=== PATIENT | female | born 1970 | race Caucasian/White ===

== ENCOUNTER 2019-11-06 12:16 | Emergency (ER) | payer OTHER, SELFPAY ==
--- NOTE | ~2019-11-06 | XR_ITS ---
EXAMINATION: XR chest 1V portable DATE: 11/06/2019 14:05 INDICATION: Cough. TECHNIQUE: A single frontal view of the chest was obtained. COMPARISON: None. FINDINGS: The chest demonstrates clear lungs without pneumonia, pleural effusion, or pneumothorax. Th e heart size is normal. There are changes of anterior fusion procedure in cervical spine. IMPRESSION: 1. No acute cardiopulmonary disease. Reviewed, dictated and finalized at location A.
[2019-11-06 12:19] VITALS: BP 151/93; PULSE 100; RESP 20; TEMP 36; O2SAT 98
--- NOTE | 2019-11-06 12:38 | ED.GENADULT ---
HPI - General Adult General Chief complaint: Upper Respiratory Infection Stated complaint: Asthma, + covid exposure Time Seen by Provider: 11/06/19 12:37 Review of Systems Review of Systems: Narrative: CONSTITUTIONAL: Denies fever, chills, or sweats. EYES: Denies visual changes, redness, or discharge. ENT: Denies rhinorrhea, congestion, sore throat, or otalgia. CARDIOVASCULAR: Denies chest pain, palpitations, or edema. RESPIRATORY: Denies cough or dyspnea. GASTROINTESTINAL: Denies abdominal pain, nausea, vomiting, or diarrhea. GENITOURINARY: Denies dysuria or hematuria. SKIN: Denies rash or itching. MUSCULOSKELETAL: Denies back pain, joint pain, or myalgia. NEUROLOGIC: Denies headache, numbness, or weakness. PSYCHIATRIC: Denies anxiety or depression. PMFSH Past Medical History Medical History (Updated 11/06/19 @ 14:31 by Veronica Newby MD) Anxiety Asthma Exam Narrative: Exam Narrative: General appearance: Well-developed, well-nourished Skin: Normal color Head: Normocephalic, nontraumatic Eyes: Clear conjunctiva ENT: Oropharynx normal, ears normal, nose normal Neck: Supple, nontender Chest and respiratory: Airway patent, no respiratory distress, no accessory muscle use Heart: Regular rate/rhythm Abdomen: Soft, nontender, no organomegaly, quiet bowel sounds Vascular: Normal peripheral pulses, normal capillary refill. Musculoskeletal: Normal range of motion, nontender back Neurologic: Alert and oriented ?3, CERAMIC CHEMIST is normal as tested, no gross motor deficit Course Course Emergency Course: Stable Vital Signs Vital signs: Vital Signs Temperature 36.0 C L 11/06/19 12:19 Pulse Rate 100 11/06/19 12:19 Respiratory Rate 11/06/19 12:19 Blood Pressure 151/93 H 11/06/19 12:19 Pulse Oximetry 98 11/06/19 12:19 Temperature 36.0 C L 11/06/19 12:19 Pulse Rate 100 11/06/19 12:19 Respiratory Rate 11/06/19 12:19 Blood Pressure 151/93 H 11/06/19 12:19 Pulse Oximetry 98 11/06/19 12:19 Medical Decision Making MDM Narrative Medical decision making narrative: Patient had exposure to somebody with COVID-19, presents with the above symptoms, history of asthma, the plan to get chest x-ray and ABG on room air, currently patient on prednisone,Z-Danie, Advair and albuterol inhaler. Chest x-ray looks okay, oxygen saturation on room air 94.5%. The plan to go home, remain isolated, with her COVID-19 test results. and to continue home medication Vital Signs Vital Signs: Vital Signs Temperature 36.0 C L 11/06/19 12:19 Pulse Rate 100 11/06/19 12:19 Respiratory Rate 20 11/06/19 12:19 Blood Pressure 151/93 H 11/06/19 12:19 Pulse Oximetry 98 11/06/19 12:19 Temperature 36.0 C L 11/06/19 12:19 Pulse Rate 100 11/06/19 12:19 Respiratory Rate 20 11/06/19 12:19 Blood Pressure 151/93 H 11/06/19 12:19 Pulse Oximetry 98 11/06/19 12:19 ABG Data ABG results: 11/06/19 13:02 Puncture Site Right brachial ABG pH 7.408 ABG pCO2 39.1 ABG pO2 71.9 L ABG PO2/FiO2 Ratio 3.42 ABG HCO3 24.1 ABG O2 Saturation 94.6 L ABG O2 Content 19.1 ABG Base Excess -0.4 A-a Gradient 31.0 Oxyhemoglobin 93.6 Total Hemoglobin 14.5 O2 Delivery Device Room air O2 Liters/Min Not Reportable FiO2 21 Critical Care Time Critical Care Time Critical Care Time: No Discharge Plan Discharge Clinical Impression: Upper respiratory infection Qualifiers: URI type: unspecified URI Qualified Code(s): J06.9 - Acute upper respiratory infection, unspecified Patient Disposition: Home, Self-Care Condition: Stable Instructions: Upper Respiratory Infection (ED) Additional Instructions: Return if sympto
[2019-11-06 13:10] LABS: Base Excess ABG -0.4 mEq/l (+/-2.0); Device ROOM AIR; Fractional Inspired Oxygen 21 %; HCO3 ABG 24.1 mEq/l (22.0-26.0); Oxygen Content ABG 19.1 %vol (16.0-22.0); Oxygen Saturation ABG 94.6 % (95.0-100.0); Oxyhemoglobin 93.6 % THb (90.0-100.0); PCO2 ABG 39.1 mmHg (35.0-45.0); PO2 ABG 71.9 mmHg (80.0-100.0); PO2 FiO2 Ratio Arterial Blood 3.42 %; Site Drawn RIGHT BRACHIAL; Total Hemoglobin 14.5 g/dL (12.0-18.0); pH ABG 7.408 (7.350-7.450)
[2019-11-06 22:23] LABS: SARS-CoV-2 RNA PCR Positive
== END 2019-11-06 14:41 | disposition home or self-care (01) ==
PROVIDERS: Emergency Provider Emergency Medicine; PCP Internal Medicine
DX: U07.1 COVID-19 (principal); J06.9 Acute upper respiratory infection, unspecified; J45.909 Unspecified asthma, uncomplicated
CPT/HCPCS: 36600; 71045; 82805; 87635; 99283; C9803; U0003

== ENCOUNTER 2019-11-12 17:39 | Inpatient (IN) | payer OTHER, SELFPAY ==
[2019-11-12] VITALS (10 sets, daily range): BP systolic 97–155; BP diastolic 72–95; PULSE 83–94; RESP 16–22; TEMP 36.8–38.1; O2SAT 92–97; BMI 46.5
--- NOTE | ~2019-11-12 | XR_ITS ---
EXAMINATION: XR chest 1V portable DATE: 11/12/2019 18:15 INDICATION: COVID 19. Shortness of breath. TECHNIQUE: frontal view of the chest was obtained. COMPARISON: Chest radiograph dated 11/06/2019 FINDINGS: Increasing bilateral scattered patchy peripheral predominant opacities consistent with pneumonia. No pleural effusion or pneumothorax. The cardiomediastinal silhouette is normal. Anterior plate and scre w fixation for lower cervical anterior spinal fusion. IMPRESSION: 1. Increasing scattered bilateral patchy lung disease consistent with pneumonia. Reviewed, dictated and finalized at location A. IMPRESSION: 1. Increasing scattered bilateral patchy lung disease consistent with pneumonia .
--- NOTE | 2019-11-12 17:41 | ECG_ITS ---
Measurements Intervals Mcdonald Rate: 91 P: 10 MT: 178 QRS: 10 QRSD: 94 T: 11 QT: 340 QTc: 420 Interpretive Statements SINUS RHYTHM LOW QRS VOLTAGE IN PRECORDIAL LEADS BORDERLINE R WAVE PROGRESSION, ANTERIOR LEADS BASELINE ARTIFACT- I, II, V3 BORDERLINE ECG Electronically Signed On 11-12-2019 19:38:18 CDT by Sancho Leonardo D.O.
[2019-11-12 18:10] LABS: Hematocrit 42.4 % (37.0-47.0); Hemoglobin 14.2 g/dL (12.0-15.0); Mean Corpuscular HGB Conc 33.5 g/dl (32-36); Mean Corpuscular Volume 86.7 fl (80-100); Mean Platelet Volume 9.9 fl (7.4-10.4); Platelet Count Result 269 k/mm3 (150-375); Red Blood Count 4.89 M/mm3 (4.2-5.4); Red Cell Distribution Width 13.2 % (11.5-14.5); White Blood Count 6.9 K/mm3 (4.5-10.0)
[2019-11-12 18:22] LABS: INR 0.9; Partial Thromboplastin Time 26.6 SECONDS (22.3-36.8)
[2019-11-12 18:32] LABS: Alanine Aminotransferase 60 U/L (4-35); Albumin Level 4.2 g/dL (3.5-5.1); Alkaline Phosphatase 64 U/L (38-126); Anion Gap 8 mmol/L (8-16); Aspartate Amino Transferase 60 U/L (14-36); Bilirubin,Total 0.8 mg/dL (0.2-1.3); Blood Urea Nitrogen 17 mg/dL (7-17); Carbon Dioxide 29 mmol/L (22-30); Chloride 99 mmol/L (98-107); Estimated CRCL calculation 126 ml/min; Estimated Glomerular Filt Rate > 60; Glucose 95 mg/dL (65-105); Potassium 3.8 mmol/L (3.4-5.0); Sodium 136 mmol/L (137-145)
[2019-11-12 18:36] LABS: Band Neutrophils Percent 4 % (0-6); Lymphocytes Absolute Manual 2.55 K/mm3 (1.1-4.5); Monocytes Absolute Manual 0.69 K/mm3 (0.1-0.90); Monocytes Percent Manual 10 % (3-9); Neutrophils Absolute Manual 3.65 K/mm3 (1.7-7.2); Neutrophils Percent Manual 49 % (46-73); Total Cells Counted 100
[2019-11-12 18:37] LABS: Platelet Estimate Adequate (Adequate)
[2019-11-12 18:38] LABS: Alveolar/Arterial O2 Gradient 41.5 mmHg; Base Excess ABG 2.6 mEq/l (+/-2.0); Carboxyhemoglobin 0.7 % THb (0-2.0); Fractional Inspired Oxygen 21 %; Methemoglobin ABG 0.2 %THb (0-1.5); Oxygen Content ABG 17.9 %vol (16.0-22.0); Oxygen Saturation ABG 91.7 % (95.0-100.0); Oxyhemoglobin 90.9 % THb (90.0-100.0); PCO2 ABG 40.6 mmHg (35.0-45.0); PO2 ABG 59.6 mmHg (80.0-100.0); PO2 FiO2 Ratio Arterial Blood 2.84 %; Reduced Hemoglobin 8.2 %THb (0-5.0); Site Drawn RIGHT BRACHIAL
[2019-11-12 18:39] LABS: Device ROOM AIR
[2019-11-12 18:49] LABS: CRP 13.5 mg/dL (<1.0)
--- NOTE | 2019-11-12 19:47 | PC.NURSE ---
Patient up to commode to provide urine at this time.
[2019-11-12 20:06] LABS: Add Urine Microscopic? YES; Appearance Urine Clear (Clear); Bacteria Urine Trace /hpf; Bilirubin Urine Negative (Negative); Blood Urine Negative (Negative); Color Urine Yellow (Yellow); Glucose Urine UA Negative (Negative); Ketones Urine Negative (Negative); Leukocyte Esterase Ur 3+ LEU/UL (Negative); Mucus Urine Rare /lpf; Nitrate Urine Negative (Negative); Protein Urine Negative (Negative); Specific Grav Ur 1.014 (1.001-1.035); Squamous Epithelial Cell Urine Few /hpf (Few); Urobilinogen Urine Negative mg/dL (<2.0); WBC Urine 0-3 /hpf
--- NOTE | 2019-11-12 20:11 | ED.SOB ---
HPI - SOB/Dyspnea General Chief Complaint: Shortness of Breath/Dyspnea Stated Complaint: covid+,SOB Time Seen by Provider: 11/12/19 19:06 History of Present Illness HPI Narrative: Patient is a 49-year-old female who presents ER with shortness of breath. Patient was diagnosed with COVID-19 6 days ago. Prior to that she had been on prednisone and a Z-Danie for about 5 days. Due to increasing shortness of breath and home pulse oximetry readings in the 80s patient came to the ER today. She reports she can walk 115 feet without becoming very short of breath. Patient's reports she intermittently collapses due to her fatigue and shortness of breath. No chest pain or chest pressure. She does have frequent coughing. Patient has history of asthma. She was hypoxic to 88% upon walking into her room. Related Data Home Medications Medication Instructions Recorded Confirmed albuterol sulfate 2 puff INHALATION Q4-6H PRN 11/12/19 11/12/19 cetirizine [Zyrtec] 10 mg PO DAILY 11/12/19 11/12/19 fluticasone propion-salmeterol 1 inh INHALATION BID 11/12/19 11/12/19 [Advair Diskus] lisinopril-hydrochlorothiazide 1 tablet PO DAILY 11/12/19 11/12/19 methocarbamol 500 - 1,000 mg PO DAILY PRN 11/12/19 11/12/19 omeprazole 20 mg PO DAILY 11/12/19 11/12/19 rosuvastatin 10 mg PO DAILY 11/12/19 11/12/19 Allergies Allergy/AdvReac Type Severity Reaction Status Date / Time No Known Allergies Allergy Verified 11/12/19 17:40 Review of Systems Review of Systems: All systems reviewed & are unremarkable except as noted in HPI and below Constitutional: Constitutional: Denies chills, Denies fever(s) and Reports weakness ENT: Reports nasal congestion and Reports sore throat Cardiovascular: Cardiovascular: Denies chest pain and Denies radiating jaw, neck or arm pain Respiratory: Respiratory: Reports cough, Reports dyspnea and Denies wheezing Gastrointestinal: Gastrointestinal: Denies abdominal pain, Denies nausea and Denies vomiting [facility] Past Medical History Medical History (Updated 11/13/19 @ 06:08 by Jani Zavala MD) Anxiety Asthma She has not had pulmonary function testing and was only recently diagnosed with asthma due to episodes of shortness of breath Essential hypertension GERD (gastroesophageal reflux disease) Hyperlipidemia Morbid obesity Surgical History Surgical History (Updated 11/12/19 @ 23:20 by Beti Howard DO) H/O hysterectomy for benign disease Hx of cholecystectomy Hx of vaginal surgery to remove benign masses Family History Family History (Updated 11/12/19 @ 23:20 by Beti Howard DO) Other Unknown family medical history Social History Social History (Updated 11/12/19 @ 23:23 by Beti Howard DO) Social History: The patient lives in [place] with her of 32 years. They have 2 adult children that are in their mid 20s in who are healthy. She is a lifelong nonsmoker. Primary care physician: Dr. Silas Porter Code status: Full code Smoking status: Never smoker Alcohol intake: current Alcohol use details: She drinks 1 or 2 alcoholic beverages once a month. 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 Gender identity (if verbalized by the patient): Female Spiritual care concerns: No Exam Narrative: Exam Narrative: GENERAL: Fatigue-appearing, well-nourished, and in no acute distress. HEAD: Normocephalic, atraumatic. ENT: Mucous membranes moist. CHEST: Clear to auscultation. No respiratory distress. HEART: Regular rate and rhythm. Normal peripheral pulses. ABDOMEN: Soft, nontender, nondistended EXTREMITIES: Normal range of motion. No edema. SKIN: Warm, dry, no rash. NEURO: Alert and oriented x3. Course Vital Signs Vital signs: Vital Signs Temperature 98.2 F 11/12/19 18:07 Pulse Rate 94 11/12/19 18:07 Respiratory Rate 17
--- NOTE | 2019-11-12 23:08 | PM.IMHP ---
H&P: HPI History of Present Illness Date/Time: 11/12/19 21:50 Chief complaint: increasing shortness of breath, COVID-19+ Narrative: Sonya Sanchez is a 49 year old female with a past medical history of hypertension, GERD and morbid obesity who presented to the ER with increasing shortness of breath. 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 One of her colleagues tested positive for COVID-19. A few days later she began to feel ill and came in for testing on 11/06/2019 and was found to Positive for COVID-19. She was discharged home from the ER had that time With prescriptions for azithromycin and prednisone. She completed her steroid and antibiotic therapy. Despite taking her medications as directed she has become more short of breath both at rest and with exertion. She can only walk about 10-15 feet without significant distress. Her oxygen saturations have dropped as low as 83% on room air with act divot he and is low as 86% on room air at rest. Her had noticed that over the last 2 days she had become more lethargic and over the last 24 hours had had difficulty concentrating and seemed confused at times. The patient herself reports that she has been having generalized body aches, loss of sense of smell, and has significant postnasal drip. She has some nausea associated with her postnasal drip but denies any vomiting. She reports that anything she tries to eat or drink tastes salty. She denies any chest pain. She has been having some heart racing with activity. Her reports that her temperature has been as high as 102.3 at home. She has a cough that is nonproductive. When the patient stood up to walk into the ER exam room her oxygen saturations dropped to 88%. She had hypoxemia noted on her ABG. she has been using her home inhalers without relief in symptoms. The patient does have chronic daytime somnolence and episodes of witnessed apnea and snoring at baseline. She has never had a sleep study. She reports that she feels exhausted all the time. She is obese but her weight is been stable. She was recently diagnosed with asthma. She reports this is due to intermittent cough and shortness of breath. The symptoms seem to be associated with times when she has increased acid in her stomach. Both her breathing symptoms and stomach symptoms arm proved when she takes [id number] PPI therapy. Review of Systems Review of Systems: Narrative: 12 systems were reviewed with pertinent positives and negatives per HPI. Except as documented in the HPI, all other systems were reviewed and are negative. [facility] Past Medical History Medical History (Updated 11/13/19 @ 06:08 by Jani Zavala MD) Anxiety Asthma She has not had pulmonary function testing and was only recently diagnosed with asthma due to episodes of shortness of breath Essential hypertension GERD (gastroesophageal reflux disease) Hyperlipidemia Morbid obesity Surgical History Surgical History (Updated 11/12/19 @ 23:20 by Beti Howard DO) H/O hysterectomy for benign disease Hx of cholecystectomy Hx of vaginal surgery to remove benign masses Family History Family History (Updated 11/12/19 @ 23:20 by Beti Howard DO) Other Unknown family medical history Social History Social History (Updated 11/12/19 @ 23:23 by Beti Howard DO) Social History: The patient lives in [place] with her of 32 years. They have 2 adult children that are in their mid 20s in who are healthy. She is a lifelong nonsmoker. Primary care physician: Dr. Silas Potrer Code status: Full code Smoking status: Never smoker Alcohol intake: current Alcohol use details: She drinks 1 or 2 alcoholic beverages once a month. 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 Gender identity (if verbalized by the patient
--- NOTE | 2019-11-12 23:32 | ADMGEN ---
This patient, Sonya Sanchez, was admitted to [facility] Surg Room 326-01. Patient/family oriented to hospital policies and general routines including ID bracelet, bed and alarms, visiting hours, pain management, procedures, bathroom and other care routines, personal items, smoking policy, room service/diet, and visiting hours. Valuables list has been completed. Information on how to activate the Rapid Response Team has been discussed. Patient/Family are encouraged to report perceived risks to care and to ask questions if they do not understand what they are told or what they should do.
[2019-11-13 00:33] VITALS: TEMP 38.1
[2019-11-13] MEDS: ACETAMINOPHEN 325 MG TABLET 650 MG PO ×2 (00:33→18:03)
[2019-11-13 04:00] VITALS: BP 121/72; PULSE 68; RESP 20; TEMP 36.8; O2SAT 92
[2019-11-13 06:28] LABS: Hematocrit 41.9 % (37.0-47.0); Hemoglobin 13.7 g/dL (12.0-15.0); Mean Corpuscular HGB Conc 32.7 g/dl (32-36); Mean Corpuscular Hemoglobin 28.7 pg (26-34); Mean Corpuscular Volume 87.7 fl (80-100); Mean Platelet Volume 9.8 fl (7.4-10.4); Platelet Count Result 272 k/mm3 (150-375); Red Blood Count 4.78 M/mm3 (4.2-5.4); Red Cell Distribution Width 12.9 % (11.5-14.5); White Blood Count 4.2 K/mm3 (4.5-10.0)
[2019-11-13 06:49] LABS: D Dimer 0.92 ug/mL (<0.48)
[2019-11-13 07:12] LABS: Alanine Aminotransferase 52 U/L (4-35); Albumin Level 4.2 g/dL (3.5-5.1); Alkaline Phosphatase 61 U/L (38-126); Anion Gap 8 mmol/L (8-16); Aspartate Amino Transferase 40 U/L (14-36); Bilirubin,Total 0.8 mg/dL (0.2-1.3); Blood Urea Nitrogen 19 mg/dL (7-17); CRP 7.6 mg/dL (<1.0); Calcium 9.2 mg/dL (8.4-10.2); Carbon Dioxide 31 mmol/L (22-30); Chloride 98 mmol/L (98-107); Estimated CRCL calculation 126 ml/min; Estimated Glomerular Filt Rate > 60; Glucose 142 mg/dL (65-105); Lactate Dehydrogenase 582 U/L (313-618); Potassium 4.9 mmol/L (3.4-5.0); Sodium 137 mmol/L (137-145)
[2019-11-13 08:00] VITALS: BP 119/73; PULSE 74; PULSE 85; RESP 20; TEMP 36.4; O2SAT 93; O2SAT 94
[2019-11-13] MEDS: ALBUTEROL SULFATE (*SP) AEROSOL 1 PUFF 6 PUFF INHALATION ×4 (08:01→20:59)
[2019-11-13] MEDS: FLUTICASONE/SALMETEROL 115-21 MCG INHALER 1 PUFF 2 PUFF INHALATION ×2 (08:01→20:59)
[2019-11-13] MEDS: ENOXAPARIN 40 MG/0.4 ML SYRINGE SUB-Q ×2 (10:41→20:28)
[2019-11-13] MEDS: LORATADINE 10 MG TABLET PO (10:42)
[2019-11-13] MEDS: PANTOPRAZOLE 40 MG TABLET PO (10:42)
[2019-11-13] MEDS: lisinopriL 20 MG TABLET PO (10:42)
--- NOTE | 2019-11-13 11:38 | PM.IMPN ---
Progress Note: A&P Assessment and Plan (1) Sepsis with acute hypoxic respiratory failure: Code(s): A41.9 - Sepsis, unspecified organism; R65.20 - Severe sepsis without septic shock; J96.01 - Acute respiratory failure with hypoxia Status: Acute Assessment and Plan: Evident based on fever, tachycardia, and tachypnea. Lactic acid is 1.0. Source of infection is likely COVID-19 pneumonia. Blood cultures are pending and will await final results Monitor labs and vitals closely Continue supportive care and dexamethasone (2) Pneumonia due to COVID-19 virus: Code(s): U07.1 - COVID-19; J12.89 - Other viral pneumonia Status: Acute Assessment and Plan: Onset of symptoms 8 days ago. Positive test on 11/06/2019. CXR shows bilateral patchy lung disease consistent with pneumonia. T-max 100.5?. Continue dexamethasone given oxygen requirements. Supplemental O2 as needed with goal saturation 90% or above Scheduled albuterol inhalers and Spiriva each a.m. Acetaminophen as needed for fever. Begin Mucinex. Trend acute phase reactants Continue isolation precautions (3) Asthma: Code(s): J45.909 - Unspecified asthma, uncomplicated Status: Acute Assessment and Plan: She has recently been started on Advair and reports improvement of her respiratory symptoms that have been ongoing for some time. Continue Advair (4) GERD (gastroesophageal reflux disease): Code(s): K21.9 - Gastro-esophageal reflux disease without esophagitis Status: Acute Assessment and Plan: Continue PPI therapy. (5) Daytime somnolence: Code(s): R40.0 - Somnolence Status: Acute Assessment and Plan: Patient complains of excessive daytime sleepiness, snoring, and had a witnessed apneic episode reported by her . She likely has sleep apnea. She would benefit from outpatient sleep study Subjective Date/time seen: 11/13/19 11:38 Interval history: date of service: 11/13/2019 Patient is a 49-year-old female with a history asthma and hypertension who is COVID positive. Today she feels short of breath, but improved from yesterday. She had CHÁVEZ when walking to the bathroom. She is coughing frequently. She feels that she has mucus in her chest but she is not able to expectorate. She has orthopnea. She complains of right anterior chest discomfort which is relieved by raising her right arm and she attributes this to coughing. She has poor sense of smell and feels that her taste is diminished. She denies any congestion or upper respiratory symptoms. She denies nausea, vomiting, fever, chills, abdominal pain, cramping, or diarrhea. She denies headache, dizziness, or lightheadedness. Her last bowel movement was 2 days ago. She is urinating regularly and denies dysuria or hematuria. Her appetite has been good. She slept well last night. She has no additional concerns. Review of Systems Review of Systems: Narrative: A 12 point review of systems was reviewed with pertinent positives and negatives as per HPI. Exam Narrative: Exam Narrative: Ms. Sanchez is an obese 49-year-old female who is lying semi recumbent in bed. She appears comfortable and is in no acute respiratory distress. HR 68, BP 121/72, R 20, T 98.2?, 93% on 2 L Neuro: awake, alert and oriented x4, speech clear, no focal neuro deficits noted HEENMT: normocephalic, atraumatic, EOMI, sclerae anicteric, moist oral mucosa, tongue midline Neck: supple, no lymphadenopathy Respiratory: diminished breath sounds without crackles or wheezes noted, nonlabored breathing Cardio: regular rate, regular rhythm with S1-S2 Abdomen: obese, nondistended, normoactive bowel sounds, soft, nontender to palpation Extremities: scant pedal edema, no erythema, cyanosis, clubbing, or tenderness to palpation, DP pulses 2+ bilaterally Skin: no rashes or lesions, warm and dry Psych: pleasant
[2019-11-13 12:00] VITALS: BP 125/74; PULSE 79; RESP 20; TEMP 36.6; O2SAT 91
[2019-11-13 16:00] VITALS: BP 115/60; PULSE 79; RESP 18; TEMP 36.4; O2SAT 91
[2019-11-13 20:00] VITALS: BP 137/70; PULSE 83; RESP 20; TEMP 36.6; O2SAT 95
[2019-11-13] MEDS: guaiFENesin 12 HR 600 MG TABCR PO (20:27)
[2019-11-14] VITALS: BP 105/66; PULSE 82; RESP 18; TEMP 36.6; O2SAT 93
[2019-11-14 04:00] VITALS: BP 116/67; PULSE 71; RESP 18; TEMP 36.6; O2SAT 93
[2019-11-14 06:34] LABS: Basophils Percent Auto 0.2 % (0.2-1.2); Hematocrit 37.5 % (37.0-47.0); Hemoglobin 12.6 g/dL (12.0-15.0); Immature Granulocyte Percent A 0.9 % (0-0.5); Lymphocytes Absolute Auto 1.63 K/mm3 (0.9-3.2); Lymphocytes Percent Auto 15.2 % (18.3-44.2); Mean Corpuscular HGB Conc 33.6 g/dl (32-36); Mean Corpuscular Hemoglobin 28.8 pg (26-34); Mean Corpuscular Volume 85.6 fl (80-100); Mean Platelet Volume 9.7 fl (7.4-10.4); Monocytes Absolute Auto 0.6 K/mm3 (0.1-0.6); Monocytes Percent Auto 5.9 % (2.6-8.5); Neutrophils Absolute Auto 8.4 K/mm3 (1.3-6.7); Neutrophils Percent Auto 77.8 % (45.5-73.1); Platelet Count Result 324 k/mm3 (150-375); Red Blood Count 4.38 M/mm3 (4.2-5.4); Red Cell Distribution Width 12.7 % (11.5-14.5); White Blood Count 10.7 K/mm3 (4.5-10.0)
[2019-11-14 06:47] LABS: Alanine Aminotransferase 35 U/L (4-35); Albumin Level 3.9 g/dL (3.5-5.1); Alkaline Phosphatase 50 U/L (38-126); Anion Gap 9 mmol/L (8-16); Aspartate Amino Transferase 24 U/L (14-36); Bilirubin,Total 0.7 mg/dL (0.2-1.3); Blood Urea Nitrogen 24 mg/dL (7-17); CRP 3.4 mg/dL (<1.0); Calcium 9.1 mg/dL (8.4-10.2); Carbon Dioxide 29 mmol/L (22-30); Chloride 98 mmol/L (98-107); Estimated CRCL calculation 144 ml/min; Estimated Glomerular Filt Rate > 60; Glucose 124 mg/dL (65-105); Lactate Dehydrogenase 444 U/L (313-618); Potassium 4.6 mmol/L (3.4-5.0); Sodium 136 mmol/L (137-145)
[2019-11-14 07:11] LABS: Hemoglobin A1C 5.7 % (<5.7)
[2019-11-14 08:00] VITALS: BP 114/72; PULSE 76; RESP 18; TEMP 37.2; O2SAT 91
[2019-11-14] MEDS: FLUTICASONE/SALMETEROL 115-21 MCG INHALER 1 PUFF 2 PUFF INHALATION ×2 (08:40→21:13)
[2019-11-14] MEDS: ALBUTEROL SULFATE (*SP) AEROSOL 1 PUFF 6 PUFF INHALATION ×4 (08:40→21:13)
[2019-11-14] MEDS: guaiFENesin 12 HR 600 MG TABCR PO ×2 (09:38→21:34)
[2019-11-14] MEDS: ENOXAPARIN 40 MG/0.4 ML SYRINGE SUB-Q ×2 (09:38→21:35)
[2019-11-14] MEDS: lisinopriL 20 MG TABLET PO (09:39)
[2019-11-14] MEDS: LORATADINE 10 MG TABLET PO (09:39)
[2019-11-14] MEDS: PANTOPRAZOLE 40 MG TABLET PO (09:39)
[2019-11-14 12:00] VITALS: BP 111/72; PULSE 81; RESP 18; TEMP 36.6; O2SAT 92
[2019-11-14] MEDS: ACETAMINOPHEN 325 MG TABLET 650 MG PO ×2 (12:00→22:12)
[2019-11-14 16:00] VITALS: BP 111/88; PULSE 90; RESP 20; TEMP 36.8; O2SAT 95
--- NOTE | 2019-11-14 16:40 | PM.IMPN ---
Progress Note: A&P Assessment and Plan (1) Sepsis with acute hypoxic respiratory failure: Code(s): A41.9 - Sepsis, unspecified organism; R65.20 - Severe sepsis without septic shock; J96.01 - Acute respiratory failure with hypoxia Status: Acute Assessment and Plan: Evident based on fever, tachycardia, and tachypnea. Lactic acid is 1.0. Source of infection is likely COVID-19 pneumonia. Resolved. She has remained afebrile and vital stable. Preliminary blood cultures reveal NGTD, await final results Monitor labs and vitals closely Continue supportive care and dexamethasone (2) Pneumonia due to COVID-19 virus: Code(s): U07.1 - COVID-19; J12.89 - Other viral pneumonia Status: Acute Assessment and Plan: Onset of symptoms 8 days ago. Positive test on 11/06/2019. CXR shows bilateral patchy lung disease consistent with pneumonia. T-max 100.5? but afebrile >24 hours. she was weaned to room air and is tolerating Continue dexamethasone given oxygen requirements. Supplemental O2 as needed with goal saturation 90% or above Scheduled albuterol inhalers and Spiriva each a.m. Acetaminophen as needed for fever, mucinex and tessalon for cough Trend acute phase reactants Continue isolation precautions (3) Asthma: Code(s): J45.909 - Unspecified asthma, uncomplicated Status: Acute Assessment and Plan: She has recently been started on Advair and reports improvement of her respiratory symptoms that have been ongoing for some time. Continue Advair Recommend outpatient pulmonary function testing at discretion of PCP (4) GERD (gastroesophageal reflux disease): Code(s): K21.9 - Gastro-esophageal reflux disease without esophagitis Status: Acute Assessment and Plan: Continue PPI therapy. (5) Daytime somnolence: Code(s): R40.0 - Somnolence Status: Acute Assessment and Plan: Patient complains of excessive daytime sleepiness, snoring, and had a witnessed apneic episode reported by her . She likely has sleep apnea. She would benefit from outpatient sleep study Subjective Date/time seen: 11/14/19 16:40 Interval history: Date of service: 11/13/2019 Patient is a 49-year-old female with a history asthma and hypertension who is COVID positive. her shortness of breath is improving but she continues to have persistent cough. She feels that her cough is a little looser and has been more productive. However she does continue to have episodes of coughing so significant that it makes her dizzy. She continues to have dyspnea on exertion with ambulation very short distances. She continues to endorse poor sense of taste or smell. she has chest wall discomfort secondary to coughing. She denies nausea, vomiting, fever, chills, abdominal pain, diarrhea, headache, dizziness, or lightheadedness. She is urinating regularly and denies dysuria or hematuria. Her appetite has been good. She has no additional concerns. Review of Systems Review of Systems: Narrative: 12 point review of systems was reviewed with pertinent positives and negatives as per HPI. Exam Narrative: Exam Narrative: Ms. Sanchez is an obese 49-year-old female who is sitting up in a chair at the bedside. She appears comfortable and is in no acute respiratory distress. HR 71, BP 116/67, RR 18, T 97.8? 93% on room air Neuro: awake, alert and oriented x4, speech clear, no focal neuro deficits noted HEENMT: normocephalic, atraumatic, EOMI, sclerae anicteric, moist oral mucosa, tongue midline Neck: supple, no lymphadenopathy Respiratory: clear to auscultation bilaterally, nonlabored breathing, dry cough heard on exam Cardio: regular rate, regular rhythm with S1-S2 Abdomen: obese, nondistended, normoactive bowel sounds, soft, nontender to palpation Extremities: no edema, erythema, cyanosis, clubbing, or tenderness to palpation, DP pulses 2+ b
[2019-11-14 20:00] VITALS: BP 110/67; PULSE 78; RESP 20; TEMP 36.6; O2SAT 95
[2019-11-14] MEDS: BENZONATATE 100 MG CAPSULE PO (22:12)
[2019-11-15] VITALS: BP 108/64; PULSE 82; RESP 18; TEMP 36.2; O2SAT 94
[2019-11-15 04:00] VITALS: BP 115/69; PULSE 70; RESP 20; TEMP 36.3; O2SAT 93
[2019-11-15 06:51] LABS: Hematocrit 36.7 % (37.0-47.0); Mean Corpuscular HGB Conc 32.7 g/dl (32-36); Mean Corpuscular Hemoglobin 28.8 pg (26-34); Mean Platelet Volume 9.7 fl (7.4-10.4); Platelet Count Result 310 k/mm3 (150-375); Red Blood Count 4.17 M/mm3 (4.2-5.4); Red Cell Distribution Width 13.2 % (11.5-14.5); White Blood Count 10.2 K/mm3 (4.5-10.0)
[2019-11-15 07:08] LABS: Alanine Aminotransferase 28 U/L (4-35); Albumin Level 3.7 g/dL (3.5-5.1); Alkaline Phosphatase 45 U/L (38-126); Anion Gap 7 mmol/L (8-16); Aspartate Amino Transferase 20 U/L (14-36); Bilirubin,Total 0.9 mg/dL (0.2-1.3); Blood Urea Nitrogen 25 mg/dL (7-17); Calcium 8.8 mg/dL (8.4-10.2); Carbon Dioxide 31 mmol/L (22-30); Chloride 99 mmol/L (98-107); Estimated CRCL calculation 126 ml/min; Estimated Glomerular Filt Rate > 60; Glucose 88 mg/dL (65-105); Potassium 4.4 mmol/L (3.4-5.0); Sodium 137 mmol/L (137-145)
[2019-11-15] MEDS: ENOXAPARIN 40 MG/0.4 ML SYRINGE SUB-Q (08:09)
[2019-11-15] MEDS: PANTOPRAZOLE 40 MG TABLET PO (08:10)
[2019-11-15] MEDS: lisinopriL 20 MG TABLET PO (08:10)
[2019-11-15] MEDS: LORATADINE 10 MG TABLET PO (08:10)
[2019-11-15] MEDS: guaiFENesin 12 HR 600 MG TABCR PO (08:10)
[2019-11-15] MEDS: BENZONATATE 100 MG CAPSULE PO (08:11)
[2019-11-15] MEDS: ALBUTEROL SULFATE (*SP) AEROSOL 1 PUFF 6 PUFF INHALATION (09:24)
[2019-11-15 09:25] VITALS: O2SAT 97
[2019-11-15] MEDS: FLUTICASONE/SALMETEROL 115-21 MCG INHALER 1 PUFF 2 PUFF INHALATION (09:25)
--- NOTE | 2019-11-15 09:59 | PM.DS ---
DS: Admitting Diagnosis Admitting Diagnosis Admitting Diagnosis: increasing shortness of breath, COVID-19+ DS: Discharge Diagnosis Discharge Diagnosis (1) Sepsis with acute hypoxic respiratory failure: Code(s): A41.9 - Sepsis, unspecified organism; R65.20 - Severe sepsis without septic shock; J96.01 - Acute respiratory failure with hypoxia Status: Acute Assessment and Plan: Evident based on fever, tachycardia, and tachypnea. Lactic acid was 1.0. Suspected source was viral pneumonia. Resolved. Final blood cultures show micrococcus in 1/2 bottles which I suspect is contaminant. Remained afebrile with stable vitals. (2) Pneumonia due to COVID-19 virus: Code(s): U07.1 - COVID-19; J12.89 - Other viral pneumonia Status: Acute Assessment and Plan: Onset of symptoms 8 days prior to presentation. Positive test on 11/06/2019. CXR showed bilateral patchy lung disease consistent with pneumonia. She was weaned to room air. Received dexamethasone which she will continue to complete 10 days. Supportive care provided with albuterol, acetaminophen, and mucinex. (3) Asthma: Code(s): J45.909 - Unspecified asthma, uncomplicated Status: Acute Assessment and Plan: She had recently been started on Advair by PCP and reports improvement of her respiratory symptoms that had been ongoing for some time. Continue Advair. Recommend outpatient pulmonary function testing at discretion of PCP. (4) GERD (gastroesophageal reflux disease): Code(s): K21.9 - Gastro-esophageal reflux disease without esophagitis Status: Acute Assessment and Plan: Continue PPI therapy. (5) Daytime somnolence: Code(s): R40.0 - Somnolence Status: Acute Assessment and Plan: Patient complains of excessive daytime sleepiness, snoring, and had a witnessed apneic episode reported by her . She likely has sleep apnea and would benefit from outpatient sleep study DS: Summary Hospital Course Reason for hospitalization: Shortness of breath Hospital Course: Date of admission: 11/12/2019 Date of discharge: 11/15/2019 Sonya Sanchez is a 49 year old female with a history of asthma, HTN, GERD, and HLD who presented to the ED on 11/12/19 with complaints of shortness of breath after being diagnosed with COVID on 8/15/20. She reported she had home pulse oximetry readings in the 80% range. At presentation, she was hypoxic to 88% upon walking to her room and was febrile at 100.5, CXR showed scattered bilateral patchy lung disease. She was admitted to the hospitalist service for further evaluation and management. Please see above for further details. She was weaned to room air and her cough improved. She began feeling much better and was comfortable with discharge home, where she lives with her . Given her overall improvement and lack of oxygen requirements, she was determined to no longer require inpatient care. We discussed worrisome signs and symptoms for which to return and she will follow up with her PCP in 1 week. She was discharged in hemodynamically stable condition on 11/15/2019. Status at Discharge Functional status at discharge: independent ambulation Overall status at discharge: patient is progressing back to baseline Time Spent with Patient Time attestation: Total time spent providing and/or coordinating discharge services:45 minutes Time spent: Greater than 30 minutes Exam Narrative: Exam Narrative: Ms. Sanchez is an obese 49-year-old female who is sitting up in a chair at the bedside. She appears comfortable and is in no acute respiratory distress. HR 70, BP 115/69, R 20, T 97.3?, 97% on room air Neuro: awake, alert and oriented x4, speech clear, no focal neuro deficits noted HEENMT: normocephalic, atraumatic, EOMI, sclerae anicteric, moist oral mucosa, tongue midline Neck: supple, no lymphadenopathy Respiratory: clear to auscultation bilaterally, nonlabored
== END 2019-11-15 09:58 | disposition home or self-care (01) | DRG 871 ==
LOC: ANHED 20:49 → ANH3MEDSUR 21:42
PROVIDERS: Emergency Medicine; Physician Assistant; Admitting Provider Internal Medicine; Emergency Provider Emergency Medicine; PCP Internal Medicine; Visit Provider Internal Medicine
DX: A41.89 Other specified sepsis (principal); U07.1 COVID-19; J12.89 Other viral pneumonia; J96.01 Acute respiratory failure with hypoxia; Z68.42 Body mass index [BMI] 45.0-49.9, adult; R65.20 Severe sepsis without septic shock; J45.909 Unspecified asthma, uncomplicated; K21.9 Gastro-esophageal reflux disease without esophagitis; R40.0 Somnolence; F41.9 Anxiety disorder, unspecified; I10 Essential (primary) hypertension; E78.5 Hyperlipidemia, unspecified; E66.01 Morbid (severe) obesity due to excess calories; Z90.710 Acquired absence of both cervix and uterus; Z90.49 Acquired absence of other specified parts of digestive tract
CPT/HCPCS: 36415; 36600; 71045; 80053; 81001; 82375; 82728; 82805; 83036; 83050; 83605; 83615; 85025; 85027; 85380; 85610; 85730; 86140; 87040; 87077; 93005; 94640; 96374; 99285; A9270; G0378; J1100; J1650

== ENCOUNTER 2021-03-14 09:55 | Outpatient (CLI) | payer OTHER, SELFPAY ==
--- NOTE | 2021-03-14 11:12 | PCRCNOTE ---
PT CAME IN FOR PFT TESTING AND 6 MINUTE WALK. PT COMPLETED 6 MINUTE WALK AND WAS UNABLE TO PERFORM PFT TESTING. PT VERY SOB AND DIZZY. PT TOOK HOME SYMBICORT AND ALBUTEROL AND HAD SOME RELIEF.LEFT MESSAGE AT DR. FARMER'S OFFICE.
--- NOTE | 2021-03-14 13:48 | WPDSIXMINUTE ---
Six Minute Walk Procedure Procedure Performed Pulmonary Stress Test (6 min walk) Six Minute Walk This is a 6 minute walk test. The test was performed and interpreted in accordance with the 2014 ERS/ATS task force guidelines. Findings: The patient's resting room air oxygen saturation measured by pulse oximetry was 97% and heart rate was 88 bpm. Patient ambulated for 396 meters and oxygen saturation remained 95 to 99%. Heart rate at the end of the study was 109 bpm. The patient did not qualify for supplemental oxygen at rest or with ambulation. There are no prior studies for comparison.
== END 2021-03-14 09:56 | disposition home or self-care (01) ==
PROVIDERS: PCP Internal Medicine; Visit Provider Nurse Practitioner Family
DX: R06.02 Shortness of breath (principal)
CPT/HCPCS: 94618

== ENCOUNTER → 2021-04-09 09:19 | Outpatient (CLI) | payer OTHER, SELFPAY ==
--- NOTE | ~2021-04-09 | XR_ITS ---
EXAMINATION: XR chest 2V EXAM DATE: 04/09/2021 10:05 INDICATION: J45.41 - Moderate persistent asthma with (acute) exacerba... TECHNIQUE: Frontal and lateral projections of the chest obtained and reviewed. Comparison is made to prior examination from 04/09/2021. FINDINGS: Cervical fusion hardware. The lungs are clear, resolution of previously seen COVID pneumon ia. There are no pleural effusions. The cardiomediastinal silhouette is within normal limits. Ther e is no pneumothorax suspected. The bones and soft tissues are unremarkable. IMPRESSION: No acute cardiopulmonary findings. Reviewed, dictated and finalized at location G. IME CAREGIVER
--- NOTE | ~2021-04-09 | XR_ITS ---
XR sinus min 3V DATE: 04/09/2021 10:05 INDICATION: Chronic sinusitis TECHNIQUE: Dagoberto Bruce, lateral and submental vertical views COMPARISON: None FINDINGS: There is asymmetric limited development of the right mastoid air cells. The left mastoid ai r cells are unremarkable. The paranasal sinuses appear normally developed and aerated, without fluid level or opacification. IMPRESSION: Negative paranasal sinuses Limited development of right mastoid air cells Reviewed, dictated and finalized at location A. TZE ROLLER
== END ==
PROVIDERS: PCP Family Medicine; Visit Provider Family Medicine
DX: J45.41 Moderate persistent asthma with (acute) exacerbation (principal)
CPT/HCPCS: 70220; 71046

== ENCOUNTER 2021-04-18 13:53 | Outpatient (CLI) | payer OTHER, SELFPAY ==
[2021-04-18 14:50] LABS: Immunoglobulin G 762 mg/dL (700-1600)
--- NOTE | 2021-04-19 17:43 | WPDPFTINT ---
PFT Procedure Performed PFT Procedure Performed Spirometry with Pre/Post Bronchodilator Plethysmography (Lung Vol) Diffusing Cap (DLCO) Flow Vol Loop PFT Interpretation DOS: 04/18/2021 REQUESTING: Laci Botello APRN REASON FOR TESTING: Shortness of breath PULMONARY FUNCTION TESTS Results are reliable and reproducible. Spirometry: FEV1 pre-bronchodilator is 109% predicted, 3.49 L. The FVC is 105%. The FEV1/FVC ratio is 83% normal. There is no statistically significant change after bronchodilator administration. Lung volumes: Total lung capacity is 98% predicted, normal. Residual volume is 68% predicted. This is in the normal range. RV/TLC is not elevated. There is no air trapping. Diffusion: DLCO is 104%, normal. Flow volume loop: There is flattening of the inspiratory loop and this is reproducible. IMPRESSION: Normal spirometry without response to bronchodilator, normal lung volumes, and normal diffusion. There is a generalized flattening of the inspiratory limb which is persistent. This may represent a variable extrathoracic obstruction. Consider visualization of the vocal cords especially if there is a concern regarding vocal cord trauma. Deepa Yo MD
[2021-04-22 05:27] LABS: Immunoglobulin G, Serum 824 mg/dL (600-1640); Immunoglobulin G1 487 mg/dL (382-929); Immunoglobulin G2 190 mg/dL (241-700); Immunoglobulin G3 52 mg/dL (22-178); Immunoglobulin G4 18.1 mg/dL (4.0-86.0)
== END 2021-04-18 13:54 | disposition home or self-care (01) ==
PROVIDERS: PCP Family Medicine; Visit Provider Nurse Practitioner Family
DX: R06.02 Shortness of breath (principal)
CPT/HCPCS: 36415; 82784; 82787; 94060; 94726; 94729

== ENCOUNTER 2021-05-02 09:33 | Outpatient (CLI) | payer OTHER, SELFPAY ==
--- NOTE | ~2021-05-02 | XR_ITS ---
XR barium swallow DATE: 05/02/2021 10:09 INDICATION: Food sticking in thoracic esophagus TECHNIQUE: Rapid sequence spot images, fluoroscopy during oral ingestion of barium 15.97 DAP 98 images 0.7 seconds fluoroscopy time COMPARISON: None FINDINGS: There is normal deglutition and esophageal peristalsis. No esophageal stricture, mucosal fo ld thickening, ulceration, diverticulum or intraluminal mass lesion is detected. Status post anterior cervical spine fusion at C5-7. IMPRESSION: Negative esophagus Status post anterior cervical spine fusion at C5-7 Reviewed, dictated and finalized at Location A. Reviewed, dictated and finalized at location A. ER WORKER POWER UNIT OPERATOR
== END 2021-05-02 09:34 | disposition home or self-care (01) ==
PROVIDERS: PCP Family Medicine; Visit Provider Otolaryngology
DX: R13.10 Dysphagia, unspecified (principal); Z98.1 Arthrodesis status
CPT/HCPCS: 74220

== ENCOUNTER 2021-08-08 11:56 | Emergency (ER) | payer OTHER, SELFPAY ==
--- NOTE | ~2021-08-08 | XR_ITS ---
EXAMINATION: XR chest 2V DATE: 08/08/2021 12:43 INDICATION: Chest pain TECHNIQUE: AP and lateral views of the chest are obtained. COMPARISON: 04/09/2021 FINDINGS: The lungs are free of acute opacities. There is no pleural effusion or pneumothorax. The ca rdiomediastinal silhouette is normal. There is moderate thoracic spondylosis. Surgical clips in the u pper abdomen on the lateral view are likely from prior cholecystectomy. There are changes of anterior fusion procedure in the lower cervical spine. IMPRESSION: 1. No acute cardiopulmonary abnormality. Reviewed, dictated and finalized at location A.
[2021-08-08 12:06] VITALS: BP 155/111; PULSE 79; RESP 16; TEMP 36.7; O2SAT 97
--- NOTE | 2021-08-08 12:18 | ED.GENADULT ---
HPI - General Adult General Chief complaint: Chest Pain Stated complaint: HBP/Cp Time Seen by Provider: 08/08/21 12:20 Source: patient Mode of arrival: ambulatory Limitations: no limitations History of Present Illness HPI narrative: 50-year-old female presented for complaint of mid/left chest pain and headache, and fatigue, onset today. She states she just wants to take a nap. Chest pain worse with palpation, radiates to the back. Headache wraps around her head. Rates 6/10. She has not taken anything for pain. she took her blood pressure while at work and she was 150s over 70s. She does not take her blood pressure medicine prior to work. She states she takes it at 1630. Endorses coworkers out with COVID recently. She denies associated palpitations, increased shortness of breath, nausea, vomiting, diarrhea, dizziness, diaphoresis, fever or chills. She was boosted for COVID about 3 weeks ago, vaccinated for flu. Hx Covid 2020, HTN, asthma, anxiety, pelvic masses awaiting surgery. Related Data Home Medications Medication Instructions Recorded Confirmed naproxen sodium 220 mg tablet 220 mg PO BID PRN 07/28/19 04/25/21 omeprazole 20 mg capsule,delayed 20 mg PO DAILY 07/28/19 04/25/21 release Zyrtec 10 mg PO DAILY 11/12/19 04/25/21 acetaminophen 325 mg capsule 325 mg PO Q6H PRN 02/26/21 04/25/21 cholecalciferol (vitamin D3) 50 50 mcg PO DAILY 02/26/21 04/25/21 mcg (2,000 unit) capsule guaifenesin 1,200 mg tablet, 1,200 mg PO BID 02/26/21 04/25/21 extended release 12 hr magnesium 30 mg tablet 30 mg PO DAILY 02/26/21 04/25/21 vitamin E mixed 400 unit capsule unit PO 02/26/21 04/25/21 Allergies Allergy/AdvReac Type Severity Reaction Status Date / Time No Known Allergies Allergy Verified 05/21/21 08:37 Review of Systems Review of Systems: CONSTITUTIONAL: Denies body aches, fever, chills, or sweats. EYES: Denies visual changes, redness, or discharge. ENT: Denies rhinorrhea, congestion, sore throat, or otalgia. CARDIOVASCULAR: Denies palpitations, or edema. RESPIRATORY: Denies cough or dyspnea. GASTROINTESTINAL: Denies abdominal pain, nausea, vomiting, or diarrhea. GENITOURINARY: Denies dysuria or hematuria. SKIN: Denies rash, itching, or wounds. MUSCULOSKELETAL: Denies joint pain, or myalgia. NEUROLOGIC: Denies numbness, tingling, or weakness. PSYCH: Denies depression or anxiety. All systems reviewed & are unremarkable except as noted in HPI and below PMFSH Past Medical History Medical History Allergies Anxiety Anxiety Asthma Daytime somnolence Depression Essential hypertension GERD (gastroesophageal reflux disease) GERD (gastroesophageal reflux disease) Hyperlipidemia IBS (irritable bowel syndrome) Morbid obesity Pneumonia due to COVID-19 virus Post viral asthma Surgical History Surgical History H/O hysterectomy for benign disease H/O: hysterectomy History of cholecystectomy Hx of cholecystectomy Hx of vaginal surgery to remove benign masses Family History Family History Other Unknown family medical history Social History Social History Social History: The patient lives in [place] with her of 32 years. They have 2 adult children that are in their mid 20s in who are healthy. She is a lifelong nonsmoker. Primary care physician: Dr. Silas Porter Code status: Full code Alcohol intake: current Drinks per week: 2 Alcohol use details: She drinks 1 or 2 alcoholic beverages once a month. 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
--- NOTE | 2021-08-08 12:45 | ECG_ITS ---
Measurements Intervals [place] Rate: 67 P: 59 MA: 190 QRS: 31 QRSD: 99 T: 29 QT: 418 QTc: 444 Interpretive Statements SINUS RHYTHM INCOMPLETE RIGHT BUNDLE BRANCH BLOCK BORDERLINE ECG Electronically Signed On 08-08-2021 13:11:27 CDT by Sancho Leonardo D.O.
[2021-08-08 13:11] VITALS: BP 158/98
== END 2021-08-08 13:11 | disposition home or self-care (01) ==
PROVIDERS: Emergency Provider Nurse Practitioner Family
DX: R07.89 Other chest pain (principal); R51.9 Headache, unspecified; Z20.822 Contact with and (suspected) exposure to COVID-19; J45.909 Unspecified asthma, uncomplicated; I10 Essential (primary) hypertension; K21.9 Gastro-esophageal reflux disease without esophagitis; E78.5 Hyperlipidemia, unspecified; E66.01 Morbid (severe) obesity due to excess calories; Z68.43 Body mass index [BMI] 50.0-59.9, adult; Z86.16 Personal history of COVID-19
CPT/HCPCS: 71046; 87426; 87804; 93005; 99213; C9803; G0463

== ENCOUNTER → 2021-08-21 16:19 | Outpatient (CLI) | payer OTHER, SELFPAY ==
--- NOTE | ~2021-08-21 | DEXA_ITS ---
Bone Density Report Name: MELISSA LOVE Age: 51 Sex: Female Ethnicity: White Date of : 1970 Indication: postmenopausal; screening for osteoporosis; height loss; asthma or emphysema; hysterectomy; Referring Provider: JOY MICHELLE Study: Bone densitometry was performed. Exam Date: August 21, 2021 Accession number: [id number] Bone Density: Region BMD T-score Z-score Classification AP Spine (L1-L4) 1.044 0.0 0.7 Normal Femoral Neck (Left) 0.737 -1.0 -0.3 Normal Total Hip (Left) 0.905 -0.3 0.2 Normal Femoral Neck (Right) 0.828 -0.2 0.5 Normal Total Hip (Right) 0.908 -0.3 0.2 Normal Total Hip Mean 0.907 -0.3 0.2 Normal World Health Organization criteria for BMD impression classify patients as: Normal (T-score at or above -1.0), Osteopenia (T-score between -1.0 and -2.5), or Osteoporosis (T-score at or below -2.5). 10-year Fracture Risk: FRAX not reported because: All T-scores for Spine Total, Hip Total, Femoral Neck at or above -1.0 Clinical Information Provided by Patient: Has the following medical conditions: Asthma or Emphysema, Hysterectomy Patient maximum height was 68.5 Menopause Age: 34 Does not regularly consume dairy products Drinks caffeinated beverages Onset of menses at age 13 Number of children 3 Impression: The patient has normal bone mass. Discussion: BONE DENSITY IS ABOVE THE MINIMUM DESIRABLE LEVEL AT ALL SKELETAL SITES TESTED. This patient?s bone mineral density is above the minimum desirable level (T-score -1.0 or better) at all sites measured. The patient should follow a healthful lifestyle (good nutrition with adequate calcium and vitamin D, and appropriate weight-bearing exercise). Follow-Up: Consider repeating this study in 5 years or sooner if there is some new clinical indication. Reported by: TR on 08/21/2021 4:48:00 PM. Reviewed, dictated and finalized at location ALaurel ARAUJO
--- NOTE | ~2021-08-21 | MM_ITS ---
EXAMINATION: MM screening michael BI w lesvia HISTORY: Screening mammogram TECHNIQUE: Craniocaudal and mediolateral oblique 3-D tomosynthesis images were obtained and synthetic 2-D images were generated. CAD analysis was submitted and interpreted. COMPARISON: No prior mammogram is available for comparison at this institution. BREAST PARENCHYMAL COMPOSITION: The breasts are almost entirely fatty. FINDINGS: There is no evidence of suspicious mass, calcification, or architectural distortion to sugg est malignancy in either breast. There has been no suspicious interval change. IMPRESSION: 1. No mammographic evidence of malignancy. 2. Recommend routine screening mammography in one year. BI-RADS Category 1: Negative Reviewed, dictated and finalized at location A.
== END ==
PROVIDERS: PCP Family Medicine; Visit Provider Obstetrics & Gynecology Gynecology
DX: Z12.31 Encounter for screening mammogram for malignant neoplasm of breast (principal); Z78.0 Asymptomatic menopausal state
CPT/HCPCS: 77063; 77067; 77080

== ENCOUNTER 2021-10-23 09:37 | Outpatient (CLI) | payer OTHER, SELFPAY ==
--- NOTE | ~2021-10-23 | XR_ITS ---
EXAMINATION: XR ankle LT min 3V, XR foot LT min 3V DATE: 10/23/2021 10:49 INDICATION: Burning sensation at the left ankle and lateral pain. Prior injury. TECHNIQUE: 1. Anteroposterior, mortise, additional oblique and lateral view of the left ankle were obtained. 2. Dorsoplantar, two oblique and lateral views of the left foot were obtained. COMPARISON: None. FINDINGS: Alignment of the left foot and ankle is normal. No fracture or osteochondral lesion. Small heterotopi c ossicle at the distal tip of the lateral malleolus likely sequela of chronic lateral ankle sprain. Large plantar calcaneal spur and small enthesopathic ossicle at the distal Achilles tendon. Additiona l small enthesophyte at the tip of the medial malleolus. Polyarticular osteoarthritis, moderate sever ity at the second and third tarsal metatarsal joints and mild at the remaining tarsal metatarsal join ts and multiple metatarsophalangeal and interphalangeal joints. No ankle joint effusion. Asymmetric i ncreased prominence of the soft tissues overlying the medial malleolus relative to the lateral malleo alirio but without evident underlying subcutaneous edema and this may be related to body habitus. IMPRESSION: 1. Heterotopic ossicle at the tip the lateral malleolus likely sequela of chronic ankle sprain. No ac darin osseous abnormality. 2. Polyarticular osteoarthritis at the left foot, moderate multisegmental third tarsal metatarsal oliver nts and otherwise mild at several additional joints in the mid and forefoot. 3. Enthesopathic changes with large plantar calcaneal spur, tiny enthesophyte at the medial malleolus and small enthesopathic ossicle at the distal Achilles tendon. Reviewed, dictated and finalized at location A. IMPRESSION: 1. Heterotopic ossicle at the tip the lateral malleolus likely sequela of chron ic ankle sprain. No acute osseous abnormality. 2. Polyarticular osteoarthritis at the left foot, moderate multisegmental third tarsal metatarsal joints and otherwise mild at several additional joints in th e mid and forefoot. 3. Enthesopathic changes with large plantar calcaneal spur, tiny enthesophyte a t the medial malleolus and small enthesopathic ossicle at the distal Achilles t endon. IMPRESSION: 1. Heterotopic ossicle at the tip the lateral malleolus likely sequela of chron ic ankle sprain. No acute osseous abnormality. 2. Polyarticular osteoarthritis at the left foot, moderate multisegmental third tarsal metatarsal joints and otherwise mild at several additional joints in e mid and forefoot. 3. Enthesopathic changes with large plantar calcaneal spur, tiny enthesophyte a t the medial malleolus and small enthesopathic ossicle at the distal Achilles t endon.
[2021-10-23 20:18] LABS: Alanine Aminotransferase 17 U/L (6-35); Albumin Level 4.1 g/dL (3.5-5.1); Alkaline Phosphatase 53 U/L (38-126); Anion Gap 7 mmol/L (8-16); Aspartate Amino Transferase 25 U/L (14-36); Bilirubin,Total 1.2 mg/dL (0.2-1.3); Blood Urea Nitrogen 18 mg/dL (7-17); Calcium 8.9 mg/dL (8.4-10.2); Carbon Dioxide 31 mmol/L (22-30); Chloride 99 mmol/L (98-107); Cholesterol 235 mg/dL (0-200); Estimated Glomerular Filt Rate > 60; Glucose 88 mg/dL (65-110); HDL Direct 51 mg/dL; Sodium 137 mmol/L (137-145); Triglycerides 187 mg/dL (<150)
[2021-10-23 20:28] LABS: LDL Cholesterol Direct 133 mg/dL
[2021-10-23 20:38] LABS: Hemoglobin A1C 5.2 % (<5.7)
== END 2021-10-23 09:38 | disposition home or self-care (01) ==
PROVIDERS: PCP Family Medicine; Visit Provider Family Medicine
DX: I10 Essential (primary) hypertension (principal); E78.5 Hyperlipidemia, unspecified; Z13.29 Encounter for screening for other suspected endocrine disorder; E66.01 Morbid (severe) obesity due to excess calories; Z68.42 Body mass index [BMI] 45.0-49.9, adult; M25.572 Pain in left ankle and joints of left foot
CPT/HCPCS: 36415; 73610; 73630; 80053; 80061; 83036; 84443

== ENCOUNTER 2021-11-28 09:06 | Outpatient (CLI) | payer OTHER, SELFPAY ==
--- NOTE | ~2021-11-28 | US_ITS ---
EXAMINATION: US venous doppler [facility] DATE: 11/28/2021 10:16 INDICATION: Lower limb swelling following 18 hours slight TECHNIQUE: Grayscale ultrasound images without and with compression and Doppler ultrasound images of the bilateral lower extremity veins were obtained. COMPARISON: None. FINDINGS: The visualized portions of right common femoral vein, profunda (deep) femoral vein, femoral vein, pop liteal vein, posterior tibial veins, peroneal veins and greater saphenous vein outflow are patent. 8. 4 x 2.1 cm Mancuso's cyst at the right popliteal fossa. There is noncompressible thrombus at the proximal aspect of the left lesser saphenous vein. The visua lized portions of left common femoral vein, profunda femoral vein, femoral vein, popliteal vein, post erior tibial veins, peroneal veins and greater saphenous vein outflow are patent. There are some hypo echoic synovitis within a 3.5 x 2.8 cm Mancuso's cyst at the left popliteal fossa. IMPRESSION: 1. Venous thrombosis at the proximal aspect of the left lesser saphenous vein. No other deep venous thrombosis in either lower limb. 2. Bilateral Mancuso's cyst. Reviewed, dictated and finalized at location A.
== END 2021-11-28 09:07 | disposition home or self-care (01) ==
LOC: ANHIMG 09:08
PROVIDERS: PCP Family Medicine; Visit Provider Family Medicine
DX: M79.89 Other specified soft tissue disorders (principal); M71.21 Synovial cyst of popliteal space [Baker], right knee; M71.22 Synovial cyst of popliteal space [Baker], left knee; I82.812 Embolism and thrombosis of superficial veins of left lower extremity
CPT/HCPCS: 93970

== ENCOUNTER 2022-01-18 16:11 | Outpatient (CLI) | payer OTHER, SELFPAY ==
--- NOTE | ~2022-01-18 | XR_ITS ---
EXAMINATION: XR chest 2V 01/18/2022 16:26 INDICATION: Cough PROCEDURE: 2 view chest COMPARISON: 11/06/2019 FINDINGS: The lungs are clear. The cardiomediastinal silhouette is within normal limits. There are no pleural effusions. There is no pneumothorax suspected. IMPRESSION: 1: NO ACUTE CARDIOPULMONARY DISEASE. Reviewed, dictated and finalized at location B.
== END 2022-01-18 16:12 ==
LOC: MICIMG 16:13
PROVIDERS: PCP Family Medicine; Visit Provider Family Medicine
DX: R05.9 Cough, unspecified (principal)
CPT/HCPCS: 71046

== ENCOUNTER 2022-05-21 08:49 | Outpatient (CLI) | payer OTHER, SELFPAY | END 2022-05-21 08:50 | disposition home or self-care (01) | LOC: ANHAUDIO 08:51 | PROVIDERS: Visit Provider Otolaryngology | DX: H90.3 Sensorineural hearing loss, bilateral (principal); J32.0 Chronic maxillary sinusitis | CPT/HCPCS: 92557; 92567 ==

== ENCOUNTER → 2022-05-21 10:32 | Outpatient (CLI) | payer OTHER, SELFPAY ==
--- NOTE | ~2022-05-21 | CT_ITS ---
EXAMINATION: CT sinus wo con DATE: 05/21/2022 10:48 INDICATION: Repeated sinus infections TECHNIQUE: Computed tomography (CT) of the paranasal sinuses was performed without intravenous contra st. The dose-length product was 254.35 mGy-cm. Automated exposure control and iterative reconstructio n technique were employed. COMPARISON: None FINDINGS: The paranasal sinuses and mastoids are pneumatized. No air-fluid levels. Leftward nasal sep kirt deviation. There are bilateral luis bullosa. No mucoperiosteal reaction. No mucosal thickening. Mastoids are pneumatized. IMPRESSION: 1. No significant sinus disease. Reviewed, dictated and finalized at location L. MAKER
== END ==
PROVIDERS: PCP Family Medicine; Visit Provider Otolaryngology
DX: J32.9 Chronic sinusitis, unspecified (principal)
CPT/HCPCS: 70486

== ENCOUNTER 2022-06-20 11:53 | Observation (INO) | payer OTHER, SELFPAY ==
[2022-06-20] VITALS (16 sets, daily range): BP systolic 122–150; BP diastolic 69–98; PULSE 68–97; RESP 12–20; TEMP 36.9; O2SAT 90–98; BMI 54.9
--- NOTE | ~2022-06-20 | CT_ITS ---
EXAMINATION: CTA chest PE protocol DATE: 06/20/2022 13:01 INDICATION: Chest pain. History of deep venous thrombosis. Recently traveled on a cruise. TECHNIQUE: Computed tomography angiography (CTA) of the chest was performed with 100 mL Omnipaque-350 intravenous contrast timed to evaluate the pulmonary arteries. Coronal maximum intensity projection 3D-reconstructions were created by the technologist. Automated exposure control and iterative reconst ruction technique were employed. Exam dose: 1155.06 mGy-cm total exam DLP. COMPARISON: 01/18/2022 2 view chest FINDINGS: There is diagnostic contrast enhancement of the pulmonary arteries. There is intraluminal t hrombus within the right pulmonary artery and extensive thrombus in the bilateral lower lobes as well as thrombi in the upper lobes and middle lobe. Some right ventricular strain is suggested. Heart size is normal. No pericardial or pleural effusion. No thoracic aortic aneurysm or dissection. No hilar or mediastinal mass lesion or lymphadenopathy. Status post cholecystectomy. Normal morphology of the adrenal glands. Lower anterior cervical spine surgical fusion. IMPRESSION: Extensive bilateral pulmonary emboli with suggestion of right heart strain Dr. Snyder telephoned the report on 06/20/2022 at 1312 hours to emergency room physician Dr. Coker. Reviewed, dictated and finalized at [facility]. Reviewed, dictated and finalized at [facility]. IMPRESSION: Extensive bilateral pulmonary emboli with suggestion of right heart strain Dr. Snyder telephoned the report on 06/20/2022 at 1312 hours to emergency room bharathi Coker.
--- NOTE | ~2022-06-20 | US_ITS ---
EXAMINATION: US venous doppler [facility] DATE: 06/20/2022 15:19 INDICATION: Calf pain. TECHNIQUE: Grayscale ultrasound images without and with compression and Doppler ultrasound images of the bilateral lower extremity veins were obtained. COMPARISON: Ultrasound 11/28/2021 FINDINGS: The visualized portions of right common femoral vein, profunda (deep) femoral vein, femoral vein, pop liteal vein, peroneal veins, posterior tibial veins, and greater saphenous vein outflow are patent. T here is a moderate size right Mancuso's cyst. The visualized portions of left common femoral vein, profunda femoral vein, femoral vein, popliteal v ein, peroneal veins, posterior tibial veins, and greater saphenous vein outflow are patent. There is a small left Mancuso's cyst. IMPRESSION: 1. No deep venous thrombosis. 2. Bilateral Mancuso's cysts. Reviewed, dictated and finalized at location [facility].
--- NOTE | 2022-06-20 12:02 | ECG_ITS ---
Measurements Intervals [place] Rate: 73 P: 33 AK: 192 QRS: 15 QRSD: 89 T: 29 QT: 393 QTc: 435 Interpretive Statements SINUS RHYTHM INCOMPLETE RIGHT BUNDLE BRANCH BLOCK LOW QRS VOLTAGE IN PRECORDIAL LEADS BORDERLINE ECG COMPARED TO ECG 08/08/2021 12:51:08 NO SIGNIFICANT CHANGES Electronically Signed On 06-20-2022 12:49:55 CDT by Sancho Leonardo D.O.
[2022-06-20 12:16] LABS: Basophils Percent Auto 0.4 % (0.2-1.2); Eosinophils Absolute Auto 0.1 K/mm3 (0-0.3); Eosinophils Percent Auto 1.7 % (0-4.4); Hematocrit 36.6 % (37.0-47.0); Hemoglobin 11.3 g/dL (12.0-15.0); Immature Granulocyte Absolute 0.04 K/mm3 (0.00-0.031); Immature Granulocyte Percent A 0.5 % (0-0.5); Lymphocytes Absolute Auto 2.68 K/mm3 (0.9-3.2); Lymphocytes Percent Auto 32.2 % (18.3-44.2); Mean Corpuscular HGB Conc 30.9 g/dl (32-36); Mean Corpuscular Hemoglobin 25.3 pg (26-34); Mean Corpuscular Volume 81.9 fl (80-100); Mean Platelet Volume 10.1 fl (7.4-10.4); Monocytes Absolute Auto 0.7 K/mm3 (0.1-0.6); Monocytes Percent Auto 8.4 % (2.6-8.5); Neutrophils Absolute Auto 4.7 K/mm3 (1.3-6.7); Neutrophils Percent Auto 56.8 % (45.5-73.1); Platelet Count Result 279 k/mm3 (150-375); Red Blood Count 4.47 M/mm3 (4.2-5.4); Red Cell Distribution Width 15.9 % (11.5-14.5); White Blood Count 8.3 K/mm3 (4.5-10.0)
--- NOTE | 2022-06-20 12:18 | ED.CHESTPAIN ---
HPI - Chest Pain General Chief Complaint: Chest Pain Stated Complaint: chest pain Time Seen by Provider: 06/20/22 12:01 Source: RN notes reviewed History of Present Illness HPI narrative: Patient presents emergency room from home for chest pain. Patient states he has been experiencing midsternal chest pain described as sharp and stabbing that radiates into the back. States has been associated with shortness of breath. Patient states that she had discussed with her PCP and was sent to rule out a blood clot. Patient states she has a history of a DVT in her leg in the past and had been on blood thinners she states that she had come off of her blood thinners for surgery in April and was never placed back on them. She states that she did recently return from vacation when she had a flight to [place] and that the last blood clot was also after a flight. She denies any fevers or chills abdominal pain nausea or vomiting or any other symptoms Related Data Home Medications Medication Instructions Recorded Confirmed omeprazole 20 mg capsule,delayed 20 mg PO DAILY 07/28/19 06/20/22 release cetirizine 10 mg capsule (Zyrtec) 10 mg PO DAILY 11/12/19 06/20/22 fluoxetine 20 mg capsule 60 mg PO DAILY 06/20/22 06/20/22 Allergies Allergy/AdvReac Type Severity Reaction Status Date / Time acetaminophen AdvReac Rash Verified 06/20/22 16:49 [From Tylenol-Codeine #3] codeine AdvReac Rash Verified 06/20/22 16:49 [From Tylenol-Codeine #3] morphine AdvReac Rash Verified 06/20/22 16:48 Review of Systems Review of Systems: Gen.: Denies fevers or chills ENT: Denies congestion Resp: Reports shortness of breath CV: Reports chest pain GI: Denies abdominal pain nausea, emesis or diarrhea Musculoskeletal: Denies back pain or muscle pain reports right calf pain Neuro: Denies numbness, tingling, weakness or focal weakness Skin: Denies rash Except as documented, all other systems reviewed and negative PMFSH Past Medical History Medical History Allergies Anxiety Anxiety Asthma Daytime somnolence Depression DVT (deep venous thrombosis) Essential hypertension GERD (gastroesophageal reflux disease) GERD (gastroesophageal reflux disease) Hyperlipidemia IBS (irritable bowel syndrome) Morbid obesity Pneumonia due to COVID-19 virus Post viral asthma Surgical History Surgical History H/O cervical spine surgery H/O hysterectomy for benign disease H/O: hysterectomy History of cholecystectomy Hx of cholecystectomy Hx of vaginal surgery to remove benign masses Family History Family History Unknown Adopted Other Unknown family medical history Social History Social History (Updated 06/20/22 @ 17:10 by Mitzi Dorman NP) Social History: 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 The patient lives in [place] with her of 32 years. They does have 2 adult children that are in their mid 20s in who are healthy. She is a lifelong nonsmoker. Primary care physician: Dr. 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 Gender identity (if verbalized by the patient): Female Sexual Orientation (if Verbalized by the P
[2022-06-20 12:23] LABS: Alanine Aminotransferase 25 U/L (6-35); Albumin Level 4.4 g/dL (3.5-5.1); Alkaline Phosphatase 70 U/L (38-126); Anion Gap 7 mmol/L (8-16); Aspartate Amino Transferase 23 U/L (14-36); Blood Urea Nitrogen 14 mg/dL (7-17); Calcium 8.9 mg/dL (8.4-10.2); Carbon Dioxide 30 mmol/L (22-30); Chloride 100 mmol/L (98-107); Estimated CRCL calculation 134 ml/min; Estimated Glomerular Filt Rate > 60; Glucose 89 mg/dL (65-110); Lipase 55 U/L (23-300); Potassium 3.8 mmol/L (3.4-5.0); Sodium 137 mmol/L (137-145)
[2022-06-20 12:26] LABS: Partial Thromboplastin Time 26.7 SECONDS (22.3-36.8)
[2022-06-20 12:34] LABS: Troponin I < 0.012 ng/mL (0.000-0.034)
[2022-06-20] MEDS: HEPARIN SODIUM 5,000 UNITS/ML VIAL 8000 UNITS IV PUSH ×2 (13:28→22:01)
[2022-06-20] MEDS: HEPARIN SOD/D5W 100 UNITS/ML 25,000 UNITS/250 ML BAG 15 UNITS IV CONT (13:29)
--- NOTE | 2022-06-20 14:12 | PM.IMHP ---
H&P: HPI History of Present Illness Date/Time: 06/20/22 14:12 Chief Complaint: Chest pain Narrative: This is a 51-year-old female patient to came to the emergency room from home with complaints of chest pain. The patient has had a history of having DVTs after long flight in the past and had been on anticoagulation. However recently the patient had vaginal fibroids removed and her anticoagulation was held and the patient has not been back on her anticoagulation since April. Today the patient had midsternal chest pain that was sharp and stabbing and radiated into the back. She also has shortness of breath. She denies any radiating pain to her arm or neck. No fever chills. The patient recently returned from vacation from [place] and this is how she obtained her last blood clot as well. Her H&H 11.3 and 36.6. Chest CTA was read as extensive bilateral pulmonary emboli with suggestion of right heart strain. Venous Doppler study no deep vein thrombosis and bilateral Mancuso cyst. The patient was started on a heparin drip. The patient is being admitted to observation status on the date of service of 06/20/2022. Review of Systems Review of Systems: All systems reviewed & are unremarkable except as noted in HPI and below Constitutional: Constitutional: Reports as per HPI and Reports no additional constitutional complaints Eyes: Eyes: Reports as per HPI and Reports no additional eye complaints ENT: Reports system reviewed and no additional complaints, except as documented and Reports Normal hearing present Cardiovascular: Cardiovascular: Reports no additional cardiovascular complaints Respiratory: Respiratory: Reports no additional respiratory complaints and Reports no additional respiratory complaints Gastrointestinal: Gastrointestinal: Reports as per HPI and Reports no additional gastrointestinal complaints Musculoskeletal: Musculoskeletal: Reports no additional musculoskeletal complaints Integumentary/Breasts: Skin/Breast: Reports system reviewed and no additional complaints, except as docu and Reports as per HPI Neurologic: Reports system reviewed and no additional complaints, except as documented, Reports as per HPI and Reports Normal hearing present Psychiatric: Psychiatric: Reports no additional psychiatric complaints and Reports as per HPI Endocrine: Endocrine: Reports no additional endocrine complaints Hematologic/Lymphatic: Hematologic/Lymphatic: Reports no additional hematologic/lymphatic complaints Allergic/Immunologic: Allergic/Immunologic: Reports no additional allergic/immunologic complaints PMFSH Past Medical History Medical History Allergies Anxiety Anxiety Asthma Daytime somnolence Depression DVT (deep venous thrombosis) Essential hypertension GERD (gastroesophageal reflux disease) GERD (gastroesophageal reflux disease) Hyperlipidemia IBS (irritable bowel syndrome) Morbid obesity Pneumonia due to COVID-19 virus Post viral asthma Surgical History Surgical History H/O cervical spine surgery H/O hysterectomy for benign disease H/O: hysterectomy History of cholecystectomy Hx of cholecystectomy Hx of vaginal surgery to remove benign masses Family History Family History Unknown Adopted Other Unknown family medical history Social History Social History (Updated 06/20/22 @ 17:10 by Mitzi Dorman NP) Social History: 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 The patient lives in [place] with her of 32 years. They does have 2 adult children that are in their mid 20s in who are healthy. She is a lifelong nonsmoker. Primary care physician: Dr. Silas Porter Code status: Full code Smoking status: Never smoker Second hand tobacco smoke exposure: Yes Alcohol intake: never Drinks per week: 1
--- NOTE | 2022-06-20 15:45 | ADMGEN ---
This patient, Sonya Sanchez, was admitted to IMU Room 232-01. Patient/family oriented to hospital policies and general routines including ID bracelet, bed and alarms, visiting hours, pain management, procedures, bathroom and other care routines, personal items, smoking policy, room service/diet, and visiting hours. Information on how to activate the Rapid Response Team has been discussed. Patient/Family are encouraged to report perceived risks to care and to ask questions if they do not understand what they are told or what they should do.
[2022-06-20] MEDS: fentaNYL CITRATE INJ (*CRX) 100 MCG/2 ML VIAL 25 MCG IV PUSH ×2 (16:41→22:02)
[2022-06-20 17:22] LABS: Troponin I < 0.012 ng/mL (0.000-0.034)
[2022-06-20 20:11] LABS: Partial Thromboplastin Time 45.8 SECONDS (22.3-36.8)
[2022-06-20 20:19] LABS: Troponin I < 0.012 ng/mL (0.000-0.034)
[2022-06-20] MEDS: busPIRone HCL 5 MG TABLET 15 MG PO (22:41)
[2022-06-20] MEDS: PANTOPRAZOLE 40 MG TABLET PO (22:42)
[2022-06-20] MEDS: FLUoxetine HCL 20 MG CAPSULE 60 MG PO (23:30)
[2022-06-21] VITALS (14 sets, daily range): BP systolic 112–147; BP diastolic 70–94; PULSE 63–96; RESP 15–20; TEMP 36.2–37.1; O2SAT 90–100
--- NOTE | 2022-06-21 | ECHO_ITS ---
Patient Info Name: Sonya Sanchez Age: 51 years : 1970 Gender: Female Ht: 68 in Wt: 361 lbs BSA: 2.90 m2 HR: 63 bpm BP: 115 / 72 mmHg Heart Rhythm: Sinus Rhythm Technical Quality: Fair Exam Date: 06/21/2022 7:34 AM Exam Location: [facility] Patient Status: Inpatient Admit Date: 06/20/2022 Staff Ordering Physician: Mitzi Dorman NP Laborer: Josie Phillips RDCS Attending Provider: Lisa Fenton MD Referring Physician: Lakia BOWIE; Exam Type: CA echo dop color flow w con Study Info Indications - Herat strain from PE Complete two-dimensional, color flow and Doppler transthoracic echocardiogram is performed with contrast to opacify the left ventricle and to improve the deliniation of the left ventricle endocardial borders. Strain analysis performed. Contrast/Agitated Saline Contrast/Ag. Saline: Definity Amount: 3.00 ml Administered By: Josie Phillips RDCS Existing IV Access: Yes IV Access Condition: patent with no signs of infiltration Summary 1. Definity contrast administered improved wall motion interpretation. 2. Left ventricular chamber dimension is normal. 3. Left ventricular systolic function is normal, estimated at 65-70%. 4. The left ventricular diastolic function is grade I diastolic dysfunction. 5. E/e' 8 is minimally elevated. 6. Global longitudinal strain is normal at -22.1%. 7. There is trace tricuspid valve regurgitation. 8. Mild pulmonary hypertension, estimated pulmonary arterial systolic pressure is 49 mmHg. Left Ventricle E/e' 8 is minimally elevated. Global longitudinal strain is normal at -22.1%. Definity contrast administered improved wall motion interpretation. Left ventricular chamber dimension is normal. Left ventricular systolic function is normal, estimated at 65-70%. The left ventricular diastolic function is grade I diastolic dysfunction. Right Ventricle Right ventricular systolic function is normal and with normal TAPSE 2.6 cm. Right ventricular chamber dimension is normal. Left Atria Left atrial chamber dimension is normal. Right Atria Right atrial chamber dimension is normal. Aortic Valve The aortic valve is trileaflet. There is no aortic valve stenosis. There is no aortic valve regurgitation. Pulmonic Valve There is no pulmonic regurgitation. Mitral Valve There is no mitral valve stenosis. There is no mitral valve regurgitation. Tricuspid Valve There is trace tricuspid valve regurgitation. Mild pulmonary hypertension, estimated pulmonary arterial systolic pressure is 49 mmHg. Pericardium/Pleural There is no pericardial effusion. Inferior Vena Cava Normal inferior vena cava with >50% collapse upon inspiration consistent with normal right atrial pressure, 5 mmHg. Aorta The aortic root size at the sinus of Valsalva is normal. Left Ventricular Outflow Tract Name Value Normal LVOT 2D LVOT Diameter 2.03 cm LVOT Doppler LVOT Peak Gradient 8 mmHg LVOT Mean Gradient 4 mmHg LVOT VTI
[2022-06-21 04:50] LABS: Basophils Absolute Auto 0.1 K/mm3 (0.0-0.1); Basophils Percent Auto 0.6 % (0.2-1.2); Eosinophils Absolute Auto 0.2 K/mm3 (0-0.3); Eosinophils Percent Auto 2.2 % (0-4.4); Hematocrit 34.3 % (37.0-47.0); Hemoglobin 10.5 g/dL (12.0-15.0); Immature Granulocyte Absolute 0.04 K/mm3 (0.00-0.031); Immature Granulocyte Percent A 0.5 % (0-0.5); Lymphocytes Absolute Auto 3.09 K/mm3 (0.9-3.2); Mean Corpuscular HGB Conc 30.6 g/dl (32-36); Mean Corpuscular Hemoglobin 24.8 pg (26-34); Mean Corpuscular Volume 81.1 fl (80-100); Mean Platelet Volume 10.4 fl (7.4-10.4); Monocytes Absolute Auto 0.7 K/mm3 (0.1-0.6); Monocytes Percent Auto 7.7 % (2.6-8.5); Neutrophils Absolute Auto 4.6 K/mm3 (1.3-6.7); Platelet Count Result 272 k/mm3 (150-375); Red Blood Count 4.23 M/mm3 (4.2-5.4); Red Cell Distribution Width 15.6 % (11.5-14.5); White Blood Count 8.6 K/mm3 (4.5-10.0)
[2022-06-21 05:07] LABS: Alanine Aminotransferase 22 U/L (6-35); Albumin Level 3.9 g/dL (3.5-5.1); Alkaline Phosphatase 67 U/L (38-126); Anion Gap 4 mmol/L (8-16); Aspartate Amino Transferase 20 U/L (14-36); Blood Urea Nitrogen 13 mg/dL (7-17); Calcium 8.7 mg/dL (8.4-10.2); Carbon Dioxide 31 mmol/L (22-30); Chloride 100 mmol/L (98-107); Estimated CRCL calculation 120 ml/min; Estimated Glomerular Filt Rate > 60; Glucose 91 mg/dL (65-110); Potassium 3.8 mmol/L (3.4-5.0); Sodium 135 mmol/L (137-145)
[2022-06-21 05:10] LABS: Partial Thromboplastin Time 81.5 SECONDS (22.3-36.8)
[2022-06-21] MEDS: HEPARIN SOD/D5W 100 UNITS/ML 25,000 UNITS/250 ML BAG 19 UNITS IV CONT (05:10)
--- NOTE | 2022-06-21 05:37 | PC.NURSE ---
At 1999 on 06/20/22 Patient had heparin drip running at 15 units/hr, 15mls/hr. After PTT verified at 2200, 8000 Unit bolus was given and increased by 4Units per protocol. The heparin was then increased to 19 Units/hr, 19mls/hr. I failed to change the dose rate in the computer as changed on IV Pump. BAUDILIO Madison verified the rate change at the time of the change. I noticed at during the time to change the bag that the rate had not been changed in the computer. The system would not allow us to go back to change the system time to reflect the change at 2000 on 06/20/22. Current rate is correct in the system at 0510 06/21/22. No changes were made after 0500 PTT resulted per protocol.
[2022-06-21] MEDS: PERFLUTREN LIPID MICROSPHERES 1.5 ML VIAL DILUTED TO 10 ML TOTAL VOLUME IV PUSH (08:20)
--- NOTE | 2022-06-21 08:20 | IVDEFINITY ---
Prior to administration of IV Definity the patient was educated on the risks and benefits of the imaging enhancing agent including potential adverse side effects. The patient verbalized understanding. Allergies were verified. No exclusion criteria were identified and at least one of the following inclusion criteria were met: 1) physician request, 2) patient technically difficult to image (per the [place] [employer] guidelines of two or more segments not discernable within the apical view), or 3) questionable left ventricular function. ?
[2022-06-21] MEDS: lisinopriL 20 MG TABLET PO (09:12)
[2022-06-21] MEDS: PANTOPRAZOLE 40 MG TABLET PO (09:12)
[2022-06-21] MEDS: busPIRone HCL 5 MG TABLET 15 MG PO ×2 (09:13→17:35)
[2022-06-21] MEDS: hydroCHLOROthiazide 25 MG TABLET PO (09:13)
[2022-06-21] MEDS: LORATADINE 10 MG TABLET PO (09:14)
[2022-06-21] MEDS: fentaNYL CITRATE INJ (*CRX) 100 MCG/2 ML VIAL 25 MCG IV PUSH (09:15)
[2022-06-21] MEDS: FLUTICASONE/SALMETEROL 115-21 MCG INHALER 1 PUFF 2 PUFF INHALATION ×2 (09:17→20:31)
[2022-06-21 11:27] LABS: Partial Thromboplastin Time 42.9 SECONDS (22.3-36.8)
[2022-06-21] MEDS: HYDROcodone/acetaminophen (*CRX) 5-325 MG TABLET 1 TAB PO (12:30)
[2022-06-21] MEDS: HEPARIN SODIUM 5,000 UNITS/ML VIAL 8000 UNITS IV PUSH (12:31)
--- NOTE | 2022-06-21 12:47 | PM.IMPN ---
Progress Note: A&P Assessment and Plan (1) Pulmonary embolism: Code(s): I26.99 - Other pulmonary embolism without acute cor pulmonale Status: Acute Assessment and Plan: Patient presents with chest pain shortness of breath. She has a history DVT. She is off her anticoagulation. She just returned from a trip from [facility]. CTA chest showing extensive bilateral PE with possible RV strain. Trop negative x3. The patient was started on a heparin drip. Her venous Doppler shows no deep vein thrombosis. Echo EF 65-70% with Grade I diastolic dysfunction. RV systolic fxn is normal. Still with chest pain. COntineu Heparin for today but change to Eliquis tomorrow morning. Care coordination to ensure she can afford this (must likely will since she was on this before). Encouraged her to have follow-up colonoscopy when able. hematlogy consulted. (2) Essential hypertension: Code(s): I10 - Essential (primary) hypertension Status: Acute Assessment and Plan: Patient's blood pressure was reviewed on 06/21 Blood pressure remains well controlled now. Will continue current medications with lisinopril and hydrochlorothiazide (3) Depression: Qualifiers: Active/Remission status: in partial remission Depression Type: major depressive disorder Major depression recurrence: recurrent Qualified Code(s): F33.41 - Major depressive disorder, recurrent, in partial remission Code(s): F32.9 - Major depressive disorder, single episode, unspecified Status: Acute Assessment and Plan: Mood stable. Continue with Prozac and BuSpar (4) Asthma: Qualifiers: Asthma complication type: uncomplicated Asthma persistence: intermittent Asthma severity: mild Qualified Code(s): J45.20 - Mild intermittent asthma, uncomplicated Code(s): J45.909 - Unspecified asthma, uncomplicated Status: Acute Assessment and Plan: lungs clear. Continue with albuterol and Symbicort (5) Obesity: Code(s): E66.9 - Obesity, unspecified Status: Acute Assessment and Plan: Stress lifestyle changes. (6) Anemia: Code(s): D64.9 - Anemia, unspecified Status: Acute Assessment and Plan: Mild anemia noted. Check stool guaiac. Check iron studies. Check B12. Subjective Date/time seen: 06/21/22 12:47 Interval history: 51yo female with hx of DVT, HTN and obesity here for chest pain and found to have PE. Patient still having right-sided chest pain occurs with change in position is also pleuritic. He is having dyspnea on exertion. Also complains a headache the past 6 days. No vision changes. No numbness, tingling or weakness in her extremities. The headaches constant. Headache does not worsen with sneezing or coughing. She was on Eliquis but this was stopped recently for a surgery. She is a lifelong nonsmoker. Colonoscopy >10 yrs ago showing polyps but no repeat colonoscopy yet. Mammogram okay 2021. She denies melena or hematochezia or vaginal bleeding. Exam Narrative: AF 97.5 134/73 84 20 93% ra Gen - NARD lying semi recumbent in bed Chest - CTA bilaterally, nml RR CV - RRR S1/S2. Telemetry showing no significant dysrhythmias Abd -soft. Obese. Nontender. Positive bowel sounds. Ext - No pedal edema Neuro - Alert and oriented. Nonfocal exam. Psych - Nml mood and affect Skin - Warm and dry Objective Data Vital Signs Vital Signs: Vital Signs - 24 hr 06/20/22 13:35 06/20/22 13:03 06/20/22 13:18 Temperature 98.5 F Pulse Rate 75 78 68 Respiratory Rate 16 18 12 Blood Pressure 150/96 H Pulse Oximetry 98 90 96 Oxygen Delivery 06/20/22 16:00 06/20/22 16:00 06/20/22 16:00 Temperature 98.5 F Pulse Rate 78 73 Respiratory Rate 12 Blood Pressure 134/85 Pulse Oximetry 97 97 Oxygen Delivery Room Air 06/20/22 18:00 06/20/22 20:00 06/21/22 00:00 Temperature 98.5 F 97.2 F L Pulse Rate 85 80 77
[2022-06-21] MEDS: diphenhydrAMINE HCl CAP 25 MG CAPSULE PO (16:38)
[2022-06-21] MEDS: HEPARIN SOD/D5W 100 UNITS/ML 25,000 UNITS/250 ML BAG 23 UNITS IV CONT (17:36)
--- NOTE | 2022-06-21 17:37 | PDONCCN ---
HPI - Date of Consult Date/Time: 06/21/22 17:37 Requesting Physician: Lisa Fenton MD Primary Care Provider: Rivera Jerome, DO - Consult Narrative Reason for consult: Hypercoagulable state Narrative: Sonya Sanchez is a 51 year old female with history of right lower extremity DVT diagnosed after long flight from [facility] 7 months ago and was treated with Eliquis until February of 2022. Eliquis was discontinued due to blind fibroid removal in March. Patient now came back from vacation with 2 and half flight from [place] and started having some shortness of breath while off the blood thinner. He was also having some midsternal chest pain with radiation to the back. CTA chest showed extensive bilateral pulmonary embolism with right heart strain. There was no evidence of DVT on the Doppler studies. She was started on heparin drip. She is already feeling better with improvement in shortness of breath. Denies any other complaints. Review of Systems - Review of Systems All systems reviewed & are unremarkable except as noted in HPI and bel - Neurologic Reports system reviewed and no additional complaints, except as documented, Reports hearing normal [facility] Medical History: Medical History (Last Reviewed 06/20/22 @ 17:09 by Mitzi Dorman NP) Allergies Anxiety Anxiety Asthma Daytime somnolence Depression DVT (deep venous thrombosis) Essential hypertension GERD (gastroesophageal reflux disease) GERD (gastroesophageal reflux disease) Hyperlipidemia IBS (irritable bowel syndrome) Morbid obesity Pneumonia due to COVID-19 virus Post viral asthma Surgical History: Surgical History (Last Reviewed 06/20/22 @ 17:09 by Mitzi Dorman NP) H/O cervical spine surgery H/O hysterectomy for benign disease H/O: hysterectomy History of cholecystectomy Hx of cholecystectomy Hx of vaginal surgery to remove benign masses Family History: Family History (Last Reviewed 06/20/22 @ 17:09 by Mitzi Dorman NP) Unknown Adopted Other Unknown family medical history - Social History Social History: Social History (Last Updated 06/20/22 @ 17:10 by Mitzi Dorman NP) Gender Identity: Gender identity (if verbalized by the patient): Female Sexual Orientation: Sexual Orientation (if Verbalized by the Patient): Straight or Heterosexual Alcohol Use: Alcohol intake: never Drinks per week: 1 Substance Use: Substance use: never Substance use type: does not use Others: Spiritual care concerns: No Agree to blood products: Yes Living Arrangements: Living arrangements: with family Oppucation/Education: Occupation/Education: occupation Smoking Status: Smoking status: Never smoker Second hand tobacco smoke exposure: Yes Social Determinants of Health: Has the Lack of Transportation Kept You From Medical Appointments or From Getting Medications?: No Within the Past 12 Months, Were You Worried Whether Your Food Would Run Out Before You Got Money to Buy More?: Never True What is Your Housing Situation Today?: I Have Housing Are You Worried That in the Next 2 Months, You May Not Have Your Own Housing to Live In?: No Do You Have Trouble Paying Your Heating Or Electricity Bill?: No Do You Have Trouble Paying For Medicines?: No Are You Currently Unemployed and Looking for Work?: No Highest Level of Education Completed: High School Diploma/GED Do You Have Trouble With Childcare or the Care of a Family Member?: No Exam - Vital Signs Vital Signs - 24 hr 06/20/22 18:00 06/20/22 20:00 06/21/22 00:00 Temperature 36.9 C 36.2 C L Pulse Rate 85 80 77 Respiratory Rate 20 15 Blood Pressure 122/69 124/71 Pulse Oximetry 92 91 Oxygen Delivery 06/20/22 20:00 06/20/22 20:00 06/20/22 22:00 Temperature Pulse Rate 91 97 Respiratory Rate Blood Pressure Pulse Oximetry 98 Oxygen Delivery Room A
[2022-06-21 18:53] LABS: Partial Thromboplastin Time 108.8 SECONDS (22.3-36.8)
[2022-06-21] MEDS: FLUoxetine HCL 20 MG CAPSULE 60 MG PO (21:22)
[2022-06-22] VITALS (9 sets, daily range): BP systolic 109–141; BP diastolic 59–94; PULSE 73–105; RESP 16–20; TEMP 36.2–36.6; O2SAT 92–98
[2022-06-22 02:07] LABS: Partial Thromboplastin Time 107.3 SECONDS (22.3-36.8)
[2022-06-22] MEDS: HYDROcodone/acetaminophen (*CRX) 5-325 MG TABLET 1 TAB PO (05:18)
[2022-06-22 05:26] LABS: Hematocrit 35.3 % (37.0-47.0); Hemoglobin 10.9 g/dL (12.0-15.0); Mean Corpuscular HGB Conc 30.9 g/dl (32-36); Mean Corpuscular Hemoglobin 25.2 pg (26-34); Mean Corpuscular Volume 81.7 fl (80-100); Mean Platelet Volume 9.9 fl (7.4-10.4); Platelet Count Result 293 k/mm3 (150-375); Red Blood Count 4.32 M/mm3 (4.2-5.4); Red Cell Distribution Width 15.9 % (11.5-14.5); White Blood Count 8.8 K/mm3 (4.5-10.0)
[2022-06-22] MEDS: HEPARIN SOD/D5W 100 UNITS/ML 25,000 UNITS/250 ML BAG 19 UNITS IV CONT (05:46)
[2022-06-22 05:49] LABS: Iron 18 ug/dL (37-170)
[2022-06-22 06:00] LABS: Percent Iron Saturation 4 % (20-50)
[2022-06-22 06:44] LABS: Folic Acid 14.9 ng/mL (2.76->20)
[2022-06-22] MEDS: hydroCHLOROthiazide 25 MG TABLET PO (08:40)
[2022-06-22] MEDS: LORATADINE 10 MG TABLET PO (08:40)
[2022-06-22] MEDS: lisinopriL 20 MG TABLET PO (08:40)
[2022-06-22] MEDS: busPIRone HCL 5 MG TABLET 15 MG PO (08:40)
[2022-06-22] MEDS: PANTOPRAZOLE 40 MG TABLET PO (08:40)
[2022-06-22] MEDS: FLUTICASONE/SALMETEROL 115-21 MCG INHALER 1 PUFF 2 PUFF INHALATION (09:05)
[2022-06-22 09:08] LABS: Partial Thromboplastin Time 78.3 SECONDS (22.3-36.8)
[2022-06-22 10:37] LABS: IFOB Positive Control Positive; Immunochemical Fecal Occult Bl Negative (N)
--- NOTE | 2022-06-22 12:34 | PM.DS ---
DS: Admitting Diagnosis Discharge Date 06/22/22 Admitting Diagnosis Chest pain DS: Discharge Diagnosis Discharge Diagnosis (1) Pulmonary embolism: Code(s): I26.99 - Other pulmonary embolism without acute cor pulmonale Status: Acute Assessment and Plan: Patient presents with chest pain shortness of breath. She has a history DVT. She is off her anticoagulation. She just returned from a trip from [facility]. CTA chest showing extensive bilateral PE with possible RV strain. Trop negative x3. The patient was started on a heparin drip. Her venous Doppler shows no deep vein thrombosis. Echo EF 65-70% with Grade I diastolic dysfunction. RV systolic fxn is normal. Still with chest pain. COntineu Heparin for today but change to Eliquis tomorrow morning. Care coordination to ensure she can afford this (must likely will since she was on this before). Encouraged her to have follow-up colonoscopy when able. hematlogy consulted. (2) Essential hypertension: Code(s): I10 - Essential (primary) hypertension Status: Acute Assessment and Plan: Patient's blood pressure was reviewed on 06/21 Blood pressure remains well controlled now. Will continue current medications with lisinopril and hydrochlorothiazide (3) Depression: Qualifiers: Depression Type: major depressive disorder Major depression recurrence: recurrent Active/Remission status: in partial remission Qualified Code(s): F33.41 - Major depressive disorder, recurrent, in partial remission Code(s): F32.9 - Major depressive disorder, single episode, unspecified Status: Acute Assessment and Plan: Mood stable. Continue with Prozac and BuSpar (4) Asthma: Qualifiers: Asthma severity: mild Asthma persistence: intermittent Asthma complication type: uncomplicated Qualified Code(s): J45.20 - Mild intermittent asthma, uncomplicated Code(s): J45.909 - Unspecified asthma, uncomplicated Status: Acute Assessment and Plan: lungs clear. Continue with albuterol and Symbicort (5) Obesity: Code(s): E66.9 - Obesity, unspecified Status: Acute Assessment and Plan: Stress lifestyle changes. (6) Anemia: Code(s): D64.9 - Anemia, unspecified Status: Acute Assessment and Plan: Mild anemia noted. Check stool guaiac. Check iron studies. Check B12. DS: Summary Hospital Course Hospital Course: 51-year-old female presenting with chest pain and shortness of breath. In the ER, she was found to have bilateral PE possible right heart strain. She was started on heparin drip. This was transitioned to Eliquis. Heart echo was ordered, EF 65-70% with grade 1 diastolic dysfunction and RV systolic function normal. Hematology was consulted and recommend a hypercoagulable workup in 3 months. She will be discharged on Eliquis with close outpatient follow-up. See above and med rec for details. Time Spent with Patient Time attestation: Total time spent providing and/or coordinating discharge services: Exam Narrative: AF 97.5 134/73 84 20 93% ra Gen - NARD lying semi recumbent in bed Chest - CTA bilaterally, nml RR CV - RRR S1/S2. Telemetry showing no significant dysrhythmias Abd -soft. Obese. Nontender. Positive bowel sounds. Ext - No pedal edema Neuro - Alert and oriented. Nonfocal exam. Psych - Nml mood and affect Skin - Warm and dry DS: Data Data Completed and Pending Labs on day of discharge: Labs from last 24 hours 06/22/22 06/22/22 06/22/22 10:06 08:43 05:10 WBC RBC Hgb Hct MCV MCH MCHC RDW Plt Count MPV APTT 78.3 H Iron TIBC % Saturation Ferritin Vitamin B12 238.0 L Folate 14.9 Stl Occult Blood (IFOB) Negative 06/22/22 06/22/22 06/22/22 05:10 05:10 01:07 WBC 8.8 RBC 4.32 Hgb 10.9 L Hct 35.3 L MCV 81.7 MCH 25.[address]
--- NOTE | 2022-06-24 11:49 | PC.NURSE ---
Received call from pt concerning having discomfort over right lung where the pt has a PE. I spoke with Dr. Alvarez regarding this. Instructed patient to use Tylenol and a heating pad to effected area. If pt develops CP and or difficulty breathing with exertion, go to nearest ER.
== END 2022-06-22 13:10 | disposition home or self-care (01) ==
LOC: ANHED 12:34 → ANHIMU 14:48
PROVIDERS: Internal Medicine; Nurse Practitioner; Admitting Provider Family Medicine; Emergency Provider Emergency Medicine; PCP Family Medicine; Visit Provider Student in an Organized Health Care Education/Training Program
DX: I26.99 Other pulmonary embolism without acute cor pulmonale (principal); I11.9 Hypertensive heart disease without heart failure; F33.41 Major depressive disorder, recurrent, in partial remission; J45.20 Mild intermittent asthma, uncomplicated; E66.01 Morbid (severe) obesity due to excess calories; Z68.43 Body mass index [BMI] 50.0-59.9, adult; D64.9 Anemia, unspecified; R07.9 Chest pain, unspecified; R06.02 Shortness of breath; K21.9 Gastro-esophageal reflux disease without esophagitis; F41.9 Anxiety disorder, unspecified; R40.0 Somnolence; E78.5 Hyperlipidemia, unspecified; K58.9 Irritable bowel syndrome, unspecified; I45.10 Unspecified right bundle-branch block; I27.20 Pulmonary hypertension, unspecified; M71.22 Synovial cyst of popliteal space [Baker], left knee; M71.21 Synovial cyst of popliteal space [Baker], right knee; Z86.718 Personal history of other venous thrombosis and embolism; Z86.16 Personal history of COVID-19; Z87.01 Personal history of pneumonia (recurrent); Z79.899 Other long term (current) drug therapy
CPT/HCPCS: 36415; 71275; 80053; 82274; 82607; 82728; 82746; 83540; 83550; 83690; 83735; 84443; 84484; 85025; 85027; 85610; 85730; 93005; 93970; 94640; 96365; 96366; 96375; 96376; 99285; A9270; C8929; G0378; J1644; J3010; Q9957; Q9967

== ENCOUNTER 2022-07-05 09:46 | Emergency (ER) | payer OTHER, SELFPAY ==
[2022-07-05] VITALS (17 sets, daily range): BP systolic 108–143; BP diastolic 62–90; PULSE 66–86; RESP 12–20; TEMP 36.6; O2SAT 93–100
--- NOTE | ~2022-07-05 | CT_ITS ---
Clinical Indication: Pulmonary embolus, worsening dyspnea CT Scan of the Chest with Contrast: Technique: Contiguous sections were acquired throughout the chest after intravenous administration of 100 cc of Omnipaque 350. Dose reduction technique was used on this scan by utilizing automated expos ure control and iterative reconstruction technique. The dose-length product (DLP) was 1100.12 mGy-cm. COMPARISON: 06/20/2022 Findings: There is no evidence of any significant mediastinal, hilar or axillary lymphadenopathy. Extensive cristela ateral pulmonary emboli are again present, dominantly involving segmental branches in the lower lobes . The extent of clot burden is improved as compared to prior exam, especially more centrally. There i s no evidence of aortic dissection or aneurysm. There is no evidence of pleural or pericardial effusion. The lungs are clear. No pulmonary nodules or infiltrates are noted. Images through the upper abdomen reveal no abnormalities. Impression: Bilateral pulmonary emboli again present, with interval improvement in the extent of clot burden as c ompared to prior exam, especially centrally. Pulmonary emboli now predominantly involve the segmental branches in the lower lobes. Reviewed, dictated and finalized at [facility]. Impression: Bilateral pulmonary emboli again present, with interval improvement in the exte nt of clot burden as compared to prior exam, especially centrally. Pulmonary em boli now predominantly involve the segmental branches in the lower lobes.
--- NOTE | ~2022-07-05 | XR_ITS ---
EXAMINATION: XR chest 2V 07/05/2022 10:09 INDICATION: Shortness of breath. History of asthma. PROCEDURE: 2 view chest COMPARISON: Comparison to multiple prior studies sequentially, with oldest reviewed study dated 11/11. FINDINGS: The lungs are clear. The cardiomediastinal silhouette is within normal limits. There are no pleural effusions. There is no pneumothorax suspected. IMPRESSION: 1: NO ACUTE CARDIOPULMONARY DISEASE. Reviewed, dictated and finalized at location B.
--- NOTE | 2022-07-05 09:50 | ECG_ITS ---
Measurements Intervals [place] Rate: 81 P: 59 [place]: 178 QRS: 22 QRSD: 97 T: 28 QT: 387 QTc: 450 Interpretive Statements SINUS RHYTHM LOW QRS VOLTAGE IN PRECORDIAL LEADS RSR' V1 BORDERLINE ECG COMPARED TO ECG 06/20/2022 12:01:15 NO SIGNIFICANT CHANGES Electronically Signed On 07-05-2022 16:48:39 CDT by Drew Voss M.D.
--- NOTE | 2022-07-05 10:53 | PC.NURSE ---
Patient reports that she has not missed a dose of her eliquis since she has been home from the hospital.
--- NOTE | 2022-07-05 12:25 | ED.SOB ---
HPI - SOB/Dyspnea General Chief Complaint: Shortness of Breath/Dyspnea Stated Complaint: sob, pe Time Seen by Provider: 07/05/22 12:08 History of Present Illness HPI Narrative: Patient is a 51-year-old female with a history of recent PEs on Eliquis presenting with fatigue and dyspnea. Patient states that she was diagnosed with bilateral PEs at the end of last month. She had stopped her Eliquis in the setting of hysterectomy at this time. She was admitted and restarted on Eliquis. She states that she has been improving at home and was able to return to work 2 days ago. Today she got up and was in her normal state of health. States that while showering, she became fatigued and more short of breath. States that she felt lightheaded when she stood up. Said that she had to sit down to relieve the sensation. States that she had some right-sided chest pain similar to the pain she had when she was diagnosed with her PEs. No headaches or fevers, palpitations, abdominal pain, nausea or vomiting, diarrhea, dysuria. States that both of her lower extremities look more swollen than normal. Related Data Home Medications Medication Instructions Recorded Confirmed omeprazole 20 mg capsule,delayed 20 mg PO DAILY 07/28/19 07/01/22 release cetirizine 10 mg capsule (Zyrtec) 10 mg PO DAILY 11/12/19 07/01/22 fluoxetine 20 mg capsule 60 mg PO DAILY 06/20/22 07/01/22 Allergies Allergy/AdvReac Type Severity Reaction Status Date / Time acetaminophen AdvReac Rash Verified 07/01/22 11:40 [From Tylenol-Codeine #3] codeine AdvReac Rash Verified 07/01/22 11:40 [From Tylenol-Codeine #3] morphine AdvReac Rash Verified 07/01/22 11:40 Review of Systems Review of Systems: All systems reviewed & are unremarkable except as noted in HPI and below PMFSH Past Medical History Medical History Allergies Anxiety Anxiety Asthma Daytime somnolence Depression DVT (deep venous thrombosis) Essential hypertension GERD (gastroesophageal reflux disease) GERD (gastroesophageal reflux disease) Hyperlipidemia IBS (irritable bowel syndrome) Morbid obesity Pneumonia due to COVID-19 virus Post viral asthma Surgical History Surgical History H/O cervical spine surgery H/O hysterectomy for benign disease H/O: hysterectomy History of cholecystectomy Hx of cholecystectomy Hx of vaginal surgery to remove benign masses Family History Family History Unknown Adopted Other Unknown family medical history Social History Social History Social History: 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 The patient lives in [place] with her of 32 years. They does have 2 adult children that are in their mid 20s in who are healthy. She is a lifelong nonsmoker. Primary care physician: Dr. 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 Gender identity (if verbalized by the patient): Female Sexual Orientation (if Verbalized by the Patient): Straight or Heterosexual Spiritual care concerns: No Agree to blood products: Yes Exam Narrative: GENERAL: Well-appearing, well-no
[2022-07-05] MEDS: SODIUM CHLORIDE 0.9% IV 1,000 ML 999 ML IV CONT (12:41)
[2022-07-05 12:51] LABS: Basophils Absolute Auto 0.1 K/mm3 (0.0-0.1); Basophils Percent Auto 0.5 % (0.2-1.2); Eosinophils Absolute Auto 0.2 K/mm3 (0-0.3); Eosinophils Percent Auto 1.8 % (0-4.4); Hematocrit 37.9 % (37.0-47.0); Hemoglobin 11.6 g/dL (12.0-15.0); Immature Granulocyte Absolute 0.03 K/mm3 (0.00-0.031); Immature Granulocyte Percent A 0.3 % (0-0.5); Lymphocytes Absolute Auto 2.93 K/mm3 (0.9-3.2); Lymphocytes Percent Auto 31.6 % (18.3-44.2); Mean Corpuscular HGB Conc 30.6 g/dl (32-36); Mean Corpuscular Volume 81.7 fl (80-100); Mean Platelet Volume 9.8 fl (7.4-10.4); Monocytes Absolute Auto 0.6 K/mm3 (0.1-0.6); Monocytes Percent Auto 6.7 % (2.6-8.5); Neutrophils Absolute Auto 5.5 K/mm3 (1.3-6.7); Neutrophils Percent Auto 59.1 % (45.5-73.1); Platelet Count Result 439 k/mm3 (150-375); Red Blood Count 4.64 M/mm3 (4.2-5.4); Red Cell Distribution Width 15.6 % (11.5-14.5); White Blood Count 9.3 K/mm3 (4.5-10.0)
[2022-07-05 12:57] LABS: Estimated CRCL calculation 120 ml/min; Estimated Glomerular Filt Rate > 60
[2022-07-05 13:02] LABS: Alanine Aminotransferase 22 U/L (6-35); Albumin Level 4.4 g/dL (3.5-5.1); Alkaline Phosphatase 65 U/L (38-126); Anion Gap 6 mmol/L (8-16); Aspartate Amino Transferase 21 U/L (14-36); Bilirubin,Total 1.7 mg/dL (0.2-1.3); Blood Urea Nitrogen 18 mg/dL (7-17); Calcium 9.1 mg/dL (8.4-10.2); Carbon Dioxide 30 mmol/L (22-30); Chloride 99 mmol/L (98-107); Estimated CRCL calculation 136 ml/min; Estimated Glomerular Filt Rate > 60; Glucose 90 mg/dL (65-110); INR 1.1; Potassium 3.7 mmol/L (3.4-5.0); Prothrombin Time 13.8 Seconds (11.1-14.7); Sodium 135 mmol/L (137-145)
[2022-07-05 13:03] LABS: Partial Thromboplastin Time 29.8 SECONDS (22.3-36.8)
[2022-07-05 13:31] LABS: Influenza A QL RT-PCR Negative (Negative); Influenza B QL RT-PCR Negative (Negative); SARS-CoV-2 RNA PCR Negative
[2022-07-05 13:32] LABS: Troponin I < 0.012 ng/mL (0.000-0.034)
[2022-07-05 14:47] LABS: NT Pro B Type Natriuretic Pept 171 pg/mL (19.9-100)
== END 2022-07-05 15:49 | disposition home or self-care (01) ==
PROVIDERS: Emergency Provider Emergency Medicine; PCP Family Medicine
DX: I26.99 Other pulmonary embolism without acute cor pulmonale (principal); I10 Essential (primary) hypertension; E78.5 Hyperlipidemia, unspecified; K21.9 Gastro-esophageal reflux disease without esophagitis; K58.9 Irritable bowel syndrome, unspecified; E66.01 Morbid (severe) obesity due to excess calories; Z68.43 Body mass index [BMI] 50.0-59.9, adult; F41.9 Anxiety disorder, unspecified; Z86.718 Personal history of other venous thrombosis and embolism; Z86.16 Personal history of COVID-19; Z87.01 Personal history of pneumonia (recurrent); Z90.710 Acquired absence of both cervix and uterus
CPT/HCPCS: 36415; 71046; 71275; 80053; 83880; 84484; 85025; 85610; 85730; 87636; 93005; 96360; 96361; 99284; J7030; Q9967

== ENCOUNTER 2022-08-12 06:38 | Emergency (ER) | payer OTHER, SELFPAY ==
[2022-08-12] VITALS (16 sets, daily range): BP systolic 131–160; BP diastolic 72–100; PULSE 75–92; RESP 13–20; TEMP 37.1; O2SAT 93–100
--- NOTE | ~2022-08-12 | CT_ITS ---
EXAMINATION: CTA chest PE protocol DATE: 08/12/2022 08:44 CDT INDICATION: Cough and chest pain TECHNIQUE: Computed tomographic angiography (CTA) of the chest was performed with 100 mL Omnipaque-35 0 intravenous contrast. The dose-length product was 1088.33 mGy-cm. Maximum intensity projection 3D-r econstructions of the aorta and other arteries were constructed by the technologist on a separate wor kstation. COMPARISON: CT dated 07/05/2022. FINDINGS: There is significantly decreased pulmonary embolism and lower lobe segmental and subsegment al pulmonary arteries. No significant pleural or pericardial effusion. No significant pleural or lucas cardial effusion. No endobronchial lesions. No pneumothorax. No focal airspace consolidation. There i s moderate thoracic spondylosis. No pulmonary nodules or masses. IMPRESSION: 1. Significantly decreased pulmonary embolism burden in lower lobe segmental and subsegmental pulmona ry arteries. Reviewed, dictated and finalized at location [facility]. IMPRESSION: 1. Significantly decreased pulmonary embolism burden in lower lobe segmental an d subsegmental pulmonary arteries.
--- NOTE | 2022-08-12 06:42 | ECG_ITS ---
Measurements Intervals [place] Rate: 84 P: 56 [place]: 177 QRS: 8 QRSD: 98 T: 37 QT: 381 QTc: 450 Interpretive Statements SINUS RHYTHM LOW QRS VOLTAGE IN PRECORDIAL LEADS ANTEROSEPTAL INFARCT, AGE INDETERMINATE BASELINE ARTIFACT- I, III, AVL ABNORMAL ECG COMPARED TO ECG 07/05/2022 09:52:06 NO SIGNIFICANT CHANGES Electronically Signed On 08-12-2022 8:07:32 CDT by Sancho Leonardo D.O.
[2022-08-12 08:18] LABS: Alanine Aminotransferase 21 U/L (6-35); Albumin Level 4.2 g/dL (3.5-5.1); Alkaline Phosphatase 60 U/L (38-126); Anion Gap 4 mmol/L (8-16); Aspartate Amino Transferase 21 U/L (14-36); Blood Urea Nitrogen 14 mg/dL (7-17); Calcium 8.5 mg/dL (8.4-10.2); Carbon Dioxide 33 mmol/L (22-30); Chloride 100 mmol/L (98-107); Estimated CRCL calculation 136 ml/min; Estimated Glomerular Filt Rate > 60; Glucose 92 mg/dL (65-110); Potassium 3.4 mmol/L (3.4-5.0); Prothrombin Time 13.4 Seconds (11.1-14.7); Sodium 137 mmol/L (137-145)
[2022-08-12 08:19] LABS: Partial Thromboplastin Time 26.5 SECONDS (22.3-36.8)
[2022-08-12 08:25] LABS: Basophils Percent Auto 0.4 % (0.2-1.2); Eosinophils Absolute Auto 0.1 K/mm3 (0-0.3); Eosinophils Percent Auto 1.1 % (0-4.4); Hematocrit 37.5 % (37.0-47.0); Hemoglobin 11.7 g/dL (12.0-15.0); Immature Granulocyte Absolute 0.03 K/mm3 (0.00-0.031); Immature Granulocyte Percent A 0.4 % (0-0.5); Lymphocytes Absolute Auto 0.82 K/mm3 (0.9-3.2); Lymphocytes Percent Auto 10.9 % (18.3-44.2); Mean Corpuscular HGB Conc 31.2 g/dl (32-36); Mean Corpuscular Hemoglobin 25.1 pg (26-34); Mean Corpuscular Volume 80.3 fl (80-100); Mean Platelet Volume 9.8 fl (7.4-10.4); Monocytes Absolute Auto 0.5 K/mm3 (0.1-0.6); Monocytes Percent Auto 6.3 % (2.6-8.5); Neutrophils Absolute Auto 6.1 K/mm3 (1.3-6.7); Neutrophils Percent Auto 80.9 % (45.5-73.1); Platelet Count Result 329 k/mm3 (150-375); Red Blood Count 4.67 M/mm3 (4.2-5.4); Red Cell Distribution Width 17.3 % (11.5-14.5); White Blood Count 7.5 K/mm3 (4.5-10.0)
[2022-08-12 08:43] LABS: Influenza A QL RT-PCR Negative (Negative); Influenza B QL RT-PCR Negative (Negative); SARS-CoV-2 RNA PCR Positive (Negative)
--- NOTE | 2022-08-12 10:20 | ED.GENADULT ---
HPI - General Adult General Chief complaint: Chest Pain Stated complaint: chest pain Time Seen by Provider: 08/12/22 07:22 History of Present Illness HPI narrative: Patient is a 51-year-old female who presents ER with pain in her chest. She has developed cough over the last day and has pain in her central chest when she is coughing. Recently diagnosed with PE and felt it may be related. She has body aches. No documented fevers or chills. She does report that people she work with have recently called off sick due to illness. She is unsure what they have. No urinary symptoms or abdominal symptoms. Related Data Home Medications Medication Instructions Recorded Confirmed omeprazole 20 mg capsule,delayed 20 mg PO DAILY 07/28/19 08/06/22 release cetirizine 10 mg capsule (Zyrtec) 10 mg PO DAILY 11/12/19 08/06/22 fluoxetine 20 mg capsule 60 mg PO DAILY 06/20/22 08/06/22 mecobalamin (vitamin B12) 1,000 1,000 mcg PO DAILY 08/06/22 08/06/22 mcg chewable tablet zolpidem 5 mg tablet 5 mg PO 08/06/22 08/06/22 Allergies Allergy/AdvReac Type Severity Reaction Status Date / Time Sulfa (Sulfonamide Allergy Unknown Verified 08/12/22 06:56 Antibiotics) acetaminophen AdvReac Rash Verified 08/06/22 15:22 [From Tylenol-Codeine #3] codeine AdvReac Rash Verified 08/06/22 15:22 [From Tylenol-Codeine #3] morphine AdvReac Rash Verified 08/06/22 15:22 Review of Systems Review of Systems: All systems reviewed & are unremarkable except as noted in HPI and below Constitutional: Constitutional: Denies chills, Denies fatigue and Denies fever(s) ENT: Denies nasal congestion and Denies sore throat Cardiovascular: Cardiovascular: Reports chest pain, Denies rapid heart rate and Denies radiating jaw, neck or arm pain Respiratory: Respiratory: Reports cough and Reports dyspnea Gastrointestinal: Gastrointestinal: Denies abdominal pain, Denies nausea and Denies vomiting PMFSH Past Medical History Medical History Allergies Anxiety Anxiety Asthma Daytime somnolence Depression DVT (deep venous thrombosis) Essential hypertension GERD (gastroesophageal reflux disease) GERD (gastroesophageal reflux disease) Hyperlipidemia IBS (irritable bowel syndrome) Morbid obesity Pneumonia due to COVID-19 virus Post viral asthma Surgical History Surgical History H/O cervical spine surgery H/O hysterectomy for benign disease H/O: hysterectomy History of cholecystectomy Hx of cholecystectomy Hx of vaginal surgery to remove benign masses Family History Family History Unknown Adopted Other Unknown family medical history Social History Social History Social History: 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 They does have 2 adult children that are in their mid 20s in who are healthy. She is a lifelong nonsmoker. Primary care physician: Dr. 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 Gender identity (if verbalized by the patient): Female Sexual Orientation (if Verbalized by the Patient): Straight or He
== END 2022-08-12 10:40 | disposition home or self-care (01) ==
PROVIDERS: Emergency Provider Emergency Medicine; PCP Family Medicine
DX: U07.1 COVID-19 (principal); F41.9 Anxiety disorder, unspecified; J45.909 Unspecified asthma, uncomplicated; F32.A Depression, unspecified; I10 Essential (primary) hypertension; K21.9 Gastro-esophageal reflux disease without esophagitis; E78.5 Hyperlipidemia, unspecified
CPT/HCPCS: 36415; 71275; 80053; 85025; 85610; 85730; 87636; 93005; 99284; Q9967

== ENCOUNTER 2022-09-17 08:13 | Outpatient (CLI) | payer OTHER, SELFPAY ==
--- NOTE | 2022-10-07 17:32 | WPDHOMESLEEP ---
Sleep Study - Home Unattended Date of Study: 09/17/22 Ordering Provider: Rivera Jerome DO Interpreting Provider: Leah Khalil DO Home Sleep Study Type: Watch PAT Height: 1.7 m Weight: 161.025 kg Body Mass Index: 55.5 Neck Circumference (inches): 15.75 [place]: 12 Reason for Sleep Study Daytime hypersomnia Sleep History The patient is a 52-year-old female that had a sleep study ordered by her primary care physician for evaluation of daytime hypersomnia. 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 She constantly awakens from sleep short of breath. She rarely awakens at night with heartburn, belching or cough. She constantly snores loudly enough that others complain. She constantly has trouble sleeping when she has a cold. She rarely wakes up gasping for air throughout the night. She frequently has breathing problems at night observed by herself or others. She frequently sweats excessively at night. She rarely has heart palpitations or irregular heartbeats during the night. She frequently falls asleep during the day. She rarely falls asleep while driving. She occasionally experiences loss of muscle tone when extremely emotional. She frequently has trouble at school or work due to sleepiness. She occasionally feels unable to move when waking up or falling asleep. She denies hypnagogic / hypnopompic hallucinations. She denies feeling afraid of going to sleep. She rarely has nightmares and rarely remembers her dreams. She constantly has thoughts racing through her mind. She constantly feels sad, depressed and anxious. She constantly has muscular tension. She occasionally notices parts of her body jerk. She denies kicking during the night. She occasionally has crawling and aching feelings in her legs and frequently has leg pain during the night. She rarely awakens with morning jaw pain. She is constantly bothered by pain during the day. She constantly wakes up feeling stiff in the morning. She constantly wakes up with sore or achy muscles. She constantly wakes up with pain in the neck, spine or other joints. She goes to bed between 8-11 p.m. on both weekdays and weekends. It takes her 90 minutes to fall asleep. She wakes up 2-3 times throughout the night to years the restroom and is able to fall back asleep within 5-10 minutes. She wakes up between 530-6 a.m. on weekdays and at 7:00 a.m. on the weekends. She typically gets 5 hours of sleep per night. She will spend 30-60 minutes in the bed after waking up in the morning. She does not consume any caffeinated beverages within 2 hours of bedtime. She denies engaging in physical exercise before bedtime. She will read and watch television before falling asleep. She will take naps in the afternoon or the evening but they are not refreshing. She consumes 1 caffeinated beverage per day. She denies tobacco, alcohol and recreational drug use. [facility] Past Medical History Medical History Allergies Anxiety Anxiety Asthma Daytime somnolence Depression DVT (deep venous thrombosis) Essential hypertension GERD (gastroesophageal reflux disease) GERD (gastroesophageal reflux disease) Hyperlipidemia IBS (irritable bowel syndrome) Morbid obesity Pneumonia due to COVID-19 virus Post viral asthma Surgical History Surgical History H/O cervical spine surgery H/O hysterectomy for benign disease H/O: hysterectomy History of cholecystectomy Hx of cholecystectomy Hx of vaginal surgery to remove benign masses Family History Family History Unknown Adopted Other Unknown family medical history Social History Social History Social History: 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
[2022-10-07 17:44] VITALS: BMI 55.5
== END 2022-09-18 10:25 | disposition home or self-care (01) ==
LOC: ANHCSM 08:14
PROVIDERS: PCP Family Medicine; Visit Provider Family Medicine
DX: R40.0 Somnolence (principal); R06.83 Snoring; G47.33 Obstructive sleep apnea (adult) (pediatric)
CPT/HCPCS: 95800

== ENCOUNTER 2022-10-11 08:19 | Outpatient (CLI) | payer OTHER, SELFPAY ==
--- NOTE | 2022-11-08 11:28 | WPDSLEEPSTUD ---
Sleep Study Date of Study: 10/11/22 Ordering Provider: Rivera Jerome DO Interpreting Physician: Deepa Yo MD Sleep Study Type: Split Polysomnogram Height: 1.7 m Weight: 158.757 kg Body Mass Index: 54.8 Neck Circumference (inches): 16 [place]: 12 Reason for Sleep Study Hypersomnolence, Moderate hypersomnolence on a home sleep test September 17, 2022 * 09/17/2022, home sleep test using WatchPat, AHI is 27.2, desaturation to 78%, patient now presents for a CPAP titration. Sleep History Sonya Douglas is a 52-year-old female here for evaluation of sleep. A recent home sleep test was order for hypersomnolence. 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 She constantly awakens from sleep short of breath.? She rarely awakens at night with heartburn, belching or coughing.? She constantly snores loudly enough that others complain.? She constantly has trouble sleeping when she has a cold.? She rarely wakes up gasping for air in the night. She frequently has breathing problems at night observed by herself or others.? She frequently sweats excessively at night.? She rarely has heart palpitations or irregular heartbeats during the night.? She frequently falls asleep during the day.? She rarely falls asleep while driving.? She occasionally experiences loss of muscle tone with strong emotion. 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 She occasionally feels unable to move when waking up or falling asleep.? She denies Vivid dreamlike scenes upon waking or falling asleep.hypnagogic / hypnopompic hallucinations.? She denies feeling afraid of going to sleep.? She rarely has nightmares and rarely remembers her dreams.? She constantly has thoughts racing through her mind.? She constantly feels sad, depressed and anxious.? She constantly has muscular tension.? She occasionally notices parts of her body jerk.? She denies kicking during the night.? She occasionally has crawling and aching feelings in her legs and frequently has leg pain during the night.? She rarely awakens with morning jaw pain.? She is constantly bothered by pain during the day.? She constantly wakes up feeling stiff in the morning.? She constantly wakes up with sore or achy muscles.? She constantly wakes up with pain in the neck, spine or other joints.? She goes to bed between 8-11 p.m. on both weekdays and weekends, taking 90 minutes to fall asleep.? She wakes up 2-3 times throughout the night, goes to the bathroom, returning to sleep within 5-10 minutes.? She wakes up between 5:30 a.m.-6:00 a.m. on weekdays and at 7:00 a.m. on the weekends.? She typically gets 5 hours of sleep per night.? She spends 30-60 minutes in the bed after waking. She takes naps in the afternoon or the evening, however a short nap lasting 10-15 minutes is refreshing.? Habits: She consumes 1 caffeinated beverage per day.? She denies tobacco, alcohol and recreational drug use. PMFSH Past Medical History Medical History Allergies Anxiety Anxiety Asthma Daytime somnolence Depression DVT (deep venous thrombosis) Essential hypertension GERD (gastroesophageal reflux disease) GERD (gastroesophageal reflux disease) Hyperlipidemia IBS (irritable bowel syndrome) Morbid obesity Pneumonia due to COVID-19 virus Post viral asthma Surgical History Surgical History H/O cervical spine surgery H/O hysterectomy for benign disease H/O: hysterectomy History of cholecystectomy Hx of cholecystectomy Hx of vaginal surgery to remove benign masses Family History Family History Unknown Adopted Other Unknown family medical history Social History Social History Social History: 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
[2022-11-08 12:19] VITALS: BMI 54.8
== END 2022-10-12 07:56 | disposition home or self-care (01) ==
LOC: ANHCSM 08:20
PROVIDERS: PCP Family Medicine; Visit Provider Family Medicine
DX: G47.33 Obstructive sleep apnea (adult) (pediatric) (principal)
CPT/HCPCS: 95811

== ENCOUNTER 2022-11-26 12:38 | Outpatient (CLI) | payer OTHER, SELFPAY ==
[2022-11-26 12:52] LABS: Hematocrit 39.5 % (37.0-47.0); Hemoglobin 12.6 g/dL (12.0-15.0); Mean Corpuscular HGB Conc 31.9 g/dl (32-36); Mean Corpuscular Hemoglobin 26.4 pg (26-34); Mean Corpuscular Volume 82.6 fl (80-100); Platelet Count Result 337 k/mm3 (150-375); Red Blood Count 4.78 M/mm3 (4.2-5.4); Red Cell Distribution Width 15.6 % (11.5-14.5); White Blood Count 7.7 K/mm3 (4.5-10.0)
[2022-11-26 16:04] LABS: Anion Gap 9 mmol/L (8-16); Blood Urea Nitrogen 17 mg/dL (7-17); Carbon Dioxide 29 mmol/L (22-30); Chloride 99 mmol/L (98-107); Estimated Glomerular Filt Rate > 60; Glucose 94 mg/dL (65-110); Potassium 3.6 mmol/L (3.4-5.0); Sodium 137 mmol/L (137-145)
[2022-11-26 16:05] LABS: Iron 32 ug/dL (37-170)
[2022-11-26 16:14] LABS: Percent Iron Saturation 8 % (20-50)
== END 2022-11-26 12:39 | disposition home or self-care (01) ==
LOC: ANHLAB 12:39
PROVIDERS: PCP Family Medicine; Visit Provider Internal Medicine Hematology & Oncology
DX: D64.9 Anemia, unspecified (principal)
CPT/HCPCS: 36415; 80048; 82607; 82728; 83540; 83550; 85027

== ENCOUNTER 2022-12-03 14:49 | Outpatient (CLI) | payer OTHER, SELFPAY ==
[2022-12-03 16:50] LABS: D Dimer 0.32 ug/mL (<0.48)
== END 2022-12-03 14:50 | disposition home or self-care (01) ==
LOC: ANHLAB 14:51
PROVIDERS: PCP Family Medicine; Visit Provider Internal Medicine Hematology & Oncology
DX: I26.99 Other pulmonary embolism without acute cor pulmonale (principal)
CPT/HCPCS: 36415; 85380

== ENCOUNTER 2023-03-28 11:47 | Outpatient (CLI) | payer BC, SELFPAY ==
--- NOTE | ~2023-03-28 | XR_ITS ---
Right Knee Technique: AP, lateral, and sunrise views were obtained. Clinical History: Pain Findings: No fracture or dislocation is seen. Osseous alignment is anatomic. Moderate tricompartmenta l degenerative changes present. There is medial compartment narrowing. Soft tissues are unremarkable. No joint effusion is seen. Impression: Moderate tricompartmental degenerative change. Reviewed, dictated and finalized at location . ER REP Impression: Moderate tricompartmental degenerative change.
--- NOTE | ~2023-03-28 | XR_ITS ---
Left Knee Technique: AP, lateral, and sunrise views were obtained. Clinical History: Pain Findings: No fracture or dislocation is seen. Osseous alignment is anatomic. There is moderate tricom partmental degenerative change, with probable medial compartment narrowing. Soft tissues are unremark able. No joint effusion is seen. Impression: Moderate tricompartmental degenerative change. Reviewed, dictated and finalized at [facility]. [facility] Impression: Moderate tricompartmental degenerative change.
== END 2023-03-28 11:48 ==
PROVIDERS: PCP Physician Assistant; Visit Provider Family Medicine
DX: M25.561 Pain in right knee (principal); M25.562 Pain in left knee; M17.0 Bilateral primary osteoarthritis of knee
CPT/HCPCS: 73564

== ENCOUNTER 2023-07-04 15:17 | Outpatient (CLI) | payer BC, SELFPAY ==
[2023-07-04 15:32] LABS: Basophils Percent Auto 0.3 % (0.2-1.2); Eosinophils Absolute Auto 0.2 K/mm3 (0-0.3); Eosinophils Percent Auto 1.9 % (0-4.4); Hemoglobin 13.9 g/dL (12.0-15.0); Immature Granulocyte Absolute 0.03 K/mm3 (0.00-0.031); Immature Granulocyte Percent A 0.3 % (0-0.5); Lymphocytes Absolute Auto 2.92 K/mm3 (0.9-3.2); Lymphocytes Percent Auto 33.4 % (18.3-44.2); Mean Corpuscular HGB Conc 33.1 g/dl (32-36); Mean Corpuscular Hemoglobin 29.9 pg (26-34); Mean Corpuscular Volume 90.3 fl (80-100); Mean Platelet Volume 9.9 fl (7.4-10.4); Monocytes Absolute Auto 0.7 K/mm3 (0.1-0.6); Monocytes Percent Auto 8.1 % (2.6-8.5); Neutrophils Absolute Auto 4.9 K/mm3 (1.3-6.7); Platelet Count Result 316 k/mm3 (150-375); Red Blood Count 4.65 M/mm3 (4.2-5.4); Red Cell Distribution Width 13.6 % (11.5-14.5); White Blood Count 8.7 K/mm3 (4.5-10.0)
[2023-07-04 16:19] LABS: Iron 96 ug/dL (37-170)
[2023-07-04 16:28] LABS: Percent Iron Saturation 30 % (20-50)
== END 2023-07-04 15:18 | disposition home or self-care (01) ==
LOC: ANHLAB 15:19
PROVIDERS: PCP Family Medicine; Visit Provider Internal Medicine Hematology & Oncology
DX: D64.9 Anemia, unspecified (principal)
CPT/HCPCS: 36415; 82607; 82728; 82746; 83540; 83550; 85025

== ENCOUNTER 2023-10-03 00:36 | Day surgery (SDC) | payer BC, SELFPAY ==
[2023-09-19 14:16] VITALS: BMI 50.1
[2023-10-03 08:03] VITALS: BP 152/98; PULSE 68; RESP 16; TEMP 36.8; O2SAT 100
[2023-10-03] MEDS: LACTATED RINGERS 1,000 ML 150 ML IV CONT (08:13)
--- NOTE | 2023-10-03 08:21 | WPDANESEPPF ---
Anes - Initial Pre Proc Eval Procedure: Operation Date: 10/03/23 09:30 Proposed Procedures p Colonoscopy - Edgar Miles MD Date/Time: 10/03/23 08:21 Surgeon: Edgar Miles MD Pre Op Diagnosis: Personal history colon polyps Patient Data Age: 53 Gender: F Height: 1.7 m Weight: 143 kg Last Vital Signs Temp 98.2 F 10/03/23 08:03 Pulse 68 10/03/23 08:03 Resp 16 10/03/23 08:03 BP 152/98 H 10/03/23 08:03 Pulse Ox 100 10/03/23 08:03 O2 Del Method Room Air 10/03/23 08:03 Allergies Allergy/AdvReac Type Severity Reaction Status Date / Time Sulfa (Sulfonamide Allergy Unknown Verified 10/03/23 08:02 Antibiotics) acetaminophen AdvReac Rash Verified 10/03/23 08:02 [From Tylenol-Codeine #3] codeine AdvReac Rash Verified 10/03/23 08:02 [From Tylenol-Codeine #3] morphine AdvReac Rash Verified 10/03/23 08:02 Home Medications Medication Instructions Recorded Confirmed Type omeprazole 20 mg capsule,delayed 20 mg PO DAILY 07/28/19 10/03/23 History release cetirizine 10 mg capsule (Zyrtec) 10 mg PO DAILY 11/12/19 10/03/23 History Symbicort 160 mcg-4.5 2 puff inhalation BID #10.2 grams 11/12/22 10/03/23 Rx mcg/actuation HFA aerosol inhaler (budesonide-formoterol) buspirone 15 mg tablet 15 mg PO BID #60 tabs 02/24/23 10/03/23 Rx meloxicam 15 mg tablet 15 mg PO DAILY #30 tabs 05/19/23 10/03/23 Rx CPAP #1 ea 06/10/23 10/03/23 Rx fluoxetine 20 mg capsule 60 mg PO DAILY #270 caps 06/27/23 10/03/23 Rx lisinopril 20 1 tablet PO DAILY #90 tabs 06/30/23 10/03/23 Rx mg-hydrochlorothiazide 12.5 mg tablet tizanidine 4 mg tablet 4 mg PO QHS PRN muscle spasticity 07/11/23 10/03/23 Rx #30 tabs zolpidem 5 mg tablet 5 mg PO QHS #30 tabs 09/12/23 10/03/23 Rx Patient hx anesthesia problems: none Family hx anesthesia problems: none Results Review: All pre-operative results and documents have been reviewed as part of the pre-operative evaluation. [facility] Past Medical History Medical History Allergies Anxiety Anxiety Asthma Daytime somnolence Depression DVT (deep venous thrombosis) Essential hypertension GERD (gastroesophageal reflux disease) GERD (gastroesophageal reflux disease) Hyperlipidemia IBS (irritable bowel syndrome) Morbid obesity Pneumonia due to COVID-19 virus Post viral asthma Surgical History Surgical History H/O cervical spine surgery H/O hysterectomy for benign disease H/O: hysterectomy History of cholecystectomy Hx of cholecystectomy Hx of vaginal surgery to remove benign masses Family History Family History Unknown Adopted Other Unknown family medical history Social History Social History Social History: 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 They does have 2 adult children that are in their mid 20s in who are healthy. She is a lifelong nonsmoker. Primary care physician: Dr. Silas Porter Code status: Full code Smoking status: Never smoker Second hand tobacco smoke exposure: Yes Alcohol intake: never Drinks per week: 1 Substance use: never Substance use type: does not use Lack of Transportation: No Lack of Food: Never True Current Housing: I Have Housing Concerned About Future Housing: No Difficulty Paying Gas/Electric Bills: No Difficulty Paying for Meds: No Currently Unemployed: No Education: High School Diploma/GED Difficulty w/ Childcare or Family Care: No Living arrangements: with family Occupation/Education: occupation Additional occupation/education comments: 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
--- NOTE | 2023-10-03 08:33 | PM.HPGS ---
History of Present Illness History of Present Illness Consent: Risks, benefits, and alternatives have been discussed and questions answered. Patient agrees to proceed with procedure. Chief complaint: Personal history colon polyps Narrative: Sonya Sanchez is a 53 year old female with last colonoscopy 15 years ago, she was told that had polyps. Review of Systems Review of Systems: All systems reviewed & are unremarkable except as noted in HPI and below PMFSH Past Medical History Medical History (Updated 10/03/23 @ 08:34 by Edgar Miles MD) Allergies Anxiety Anxiety Asthma Colon cancer screening Daytime somnolence Depression DVT (deep venous thrombosis) Essential hypertension GERD (gastroesophageal reflux disease) GERD (gastroesophageal reflux disease) Hyperlipidemia IBS (irritable bowel syndrome) Morbid obesity Pneumonia due to COVID-19 virus Post viral asthma Surgical History Surgical History H/O cervical spine surgery H/O hysterectomy for benign disease H/O: hysterectomy History of cholecystectomy Hx of cholecystectomy Hx of vaginal surgery to remove benign masses Family History Family History Unknown Adopted Other Unknown family medical history Social History Social History Social History: 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 They does have 2 adult children that are in their mid 20s in who are healthy. She is a lifelong nonsmoker. Primary care physician: Dr. 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 Gender identity (if verbalized by the patient): Female Sexual Orientation (if Verbalized by the Patient): Straight or Heterosexual Spiritual care concerns: No Agree to blood products: Yes Meds Home Medications and Allergies Home Medications Medication Instructions Recorded Confirmed Type omeprazole 20 mg capsule,delayed 20 mg PO DAILY 07/28/19 10/03/23 History release cetirizine 10 mg capsule (Zyrtec) 10 mg PO DAILY 11/12/19 10/03/23 History Symbicort 160 mcg-4.5 2 puff inhalation BID #10.2 grams 11/12/22 10/03/23 Rx mcg/actuation HFA aerosol inhaler (budesonide-formoterol) buspirone 15 mg tablet 15 mg PO BID #60 tabs 02/24/23 10/03/23 Rx meloxicam 15 mg tablet 15 mg PO DAILY #30 tabs 05/19/23 10/03/23 Rx CPAP #1 ea 06/10/23 10/03/23 Rx fluoxetine 20 mg capsule 60 mg PO DAILY #270 caps 06/27/23 10/03/23 Rx lisinopril 20 1 tablet PO DAILY #90 tabs 06/30/23 10/03/23 Rx mg-hydrochlorothiazide 12.5 mg tablet tizanidine 4 mg tablet 4 mg PO QHS PRN muscle spasticity 07/11/23 10/03/23 Rx #30 tabs zolpidem 5 mg tablet 5 mg PO QHS #30 tabs 09/12/23 10/03/23 Rx Allergies Allergy/AdvReac Type Severity Reaction Status Date / Time Sulfa (Sulfonamide Allergy Unknown Verified 10/03/23 08:02 Antibiotics) acetaminophen AdvReac Rash Verified 10/03/23 08:02 [From Tylenol-Codeine #3] codeine AdvReac Rash Verified 10/03/23 08:02 [From Tylenol-Codeine #3] morphine AdvReac Rash Verified 10/03/23 08:02 Vital Signs Vital Signs - 24 hr 10/03/23 08:03 Tem[place]atur
[2023-10-03 08:48] VITALS: BP 121/77; PULSE 69; RESP 18; O2SAT 97
[2023-10-03 08:58] VITALS: BP 131/86; PULSE 63; RESP 18; O2SAT 95
[2023-10-03 09:08] VITALS: BP 146/97; PULSE 63; RESP 18; O2SAT 98
== END 2023-10-03 09:15 | disposition home or self-care (01) ==
PROVIDERS: PCP Family Medicine; Referring Provider Nurse Practitioner; Visit Provider Internal Medicine Gastroenterology
PROC: 0DJD8ZZ Inspection of Lower Intestinal Tract, Via Natural or Artificial Opening Endoscopic (ICD-10-PCS; CPT 45378; principal; 2023-10-03 09:30)
DX: Z12.11 Encounter for screening for malignant neoplasm of colon (principal); K64.8 Other hemorrhoids; I10 Essential (primary) hypertension; E78.5 Hyperlipidemia, unspecified; F41.9 Anxiety disorder, unspecified; J45.909 Unspecified asthma, uncomplicated; F32.A Depression, unspecified; K21.9 Gastro-esophageal reflux disease without esophagitis; K58.9 Irritable bowel syndrome, unspecified; R40.0 Somnolence; E66.01 Morbid (severe) obesity due to excess calories; Z68.42 Body mass index [BMI] 45.0-49.9, adult; Z79.51 Long term (current) use of inhaled steroids; Z99.89 Dependence on other enabling machines and devices; Z98.890 Other specified postprocedural states; Z90.49 Acquired absence of other specified parts of digestive tract; Z98.1 Arthrodesis status; Z86.010 Personal history of colon polyps; Z86.718 Personal history of other venous thrombosis and embolism
CPT/HCPCS: 45378; J2704; J7120

== ENCOUNTER 2023-10-23 15:19 | Outpatient (CLI) | payer BC, SELFPAY ==
--- NOTE | ~2023-10-23 | XR_ITS ---
XR cervical spine 4-5V Ordering provider: Brisa Calles, GEORGE History: . no injury posterior neck pain . Comparison: None. FINDINGS: VERTEBRAL BODIES: Normal height and alignment. No visible fracture or subluxation. The dens is intact . Postoperative changes seen at the level of C5, C6 and C7. DISK SPACES: Narrowing of the disc C3-C4 and C4-C5. Multilevel uncovertebral joint osteoarthritic arsenio nges. PARASPINOUS SOFT TISSUES: No prevertebral soft tissue swelling. IMPRESSION: No acute osseous abnormality cervical spine. Reviewed, dictated and finalized at location A.
== END 2023-10-23 15:20 ==
PROVIDERS: PCP Family Medicine; Visit Provider Physician Assistant
DX: M54.2 Cervicalgia (principal)
CPT/HCPCS: 72050